=== PATIENT | male | born 1965 | race Two or more races ===

== ENCOUNTER → 2020-08-08 10:19 | Outpatient (BNVA) | payer OTHER, SELFPAY | PROVIDERS: PCP Nurse Practitioner Family; Visit Provider Hospitalist | DX: J44.1 Chronic obstructive pulmonary disease with (acute) exacerbation (principal); J45.901 Unspecified asthma with (acute) exacerbation; J96.11 Chronic respiratory failure with hypoxia; J96.12 Chronic respiratory failure with hypercapnia; G47.33 Obstructive sleep apnea (adult) (pediatric); E66.01 Morbid (severe) obesity due to excess calories; Z79.899 Other long term (current) drug therapy; Z99.81 Dependence on supplemental oxygen | CPT/HCPCS: 99212 ==

== ENCOUNTER → 2020-10-08 10:22 | Outpatient (BNVA) | payer OTHER, SELFPAY | PROVIDERS: PCP Nurse Practitioner Family; Visit Provider Hospitalist | DX: J96.10 Chronic respiratory failure, unspecified whether with hypoxia or hypercapnia (principal); J45.901 Unspecified asthma with (acute) exacerbation; J44.1 Chronic obstructive pulmonary disease with (acute) exacerbation; M79.89 Other specified soft tissue disorders; G47.33 Obstructive sleep apnea (adult) (pediatric) | CPT/HCPCS: 99212 ==

== ENCOUNTER → 2020-12-16 14:52 | Outpatient (BNVA) | payer OTHER, SELFPAY | PROVIDERS: PCP Nurse Practitioner Family; Visit Provider Hospitalist ==

== ENCOUNTER → 2021-05-23 10:18 | Outpatient (BNVA) | payer OTHER, SELFPAY | PROVIDERS: PCP Nurse Practitioner Family; Visit Provider Hospitalist | DX: J96.11 Chronic respiratory failure with hypoxia (principal); J96.12 Chronic respiratory failure with hypercapnia; G47.33 Obstructive sleep apnea (adult) (pediatric); U07.1 COVID-19; Z79.899 Other long term (current) drug therapy | CPT/HCPCS: 99212 ==

== ENCOUNTER → 2021-08-28 10:41 | Outpatient (BNVA) | payer OTHER, SELFPAY | PROVIDERS: PCP Nurse Practitioner Family; Visit Provider Hospitalist | DX: J96.11 Chronic respiratory failure with hypoxia (principal); J96.12 Chronic respiratory failure with hypercapnia; J44.9 Chronic obstructive pulmonary disease, unspecified; G47.33 Obstructive sleep apnea (adult) (pediatric) | CPT/HCPCS: 99212 ==

== ENCOUNTER → 2022-01-01 10:35 | Outpatient (BNVA) | payer OTHER, SELFPAY | PROVIDERS: PCP Nurse Practitioner Family; Visit Provider Hospitalist | DX: J44.9 Chronic obstructive pulmonary disease, unspecified (principal); J96.11 Chronic respiratory failure with hypoxia; J96.12 Chronic respiratory failure with hypercapnia; G47.33 Obstructive sleep apnea (adult) (pediatric) | CPT/HCPCS: 99212 ==

== ENCOUNTER → 2022-07-20 10:54 | Outpatient (BNVA) | payer OTHER, SELFPAY | PROVIDERS: PCP Nurse Practitioner Family; Visit Provider Hospitalist | DX: J44.9 Chronic obstructive pulmonary disease, unspecified (principal); J96.11 Chronic respiratory failure with hypoxia; J96.12 Chronic respiratory failure with hypercapnia; G47.33 Obstructive sleep apnea (adult) (pediatric); E66.01 Morbid (severe) obesity due to excess calories; Z68.43 Body mass index [BMI] 50.0-59.9, adult; Z99.89 Dependence on other enabling machines and devices | CPT/HCPCS: 94618; 99212 ==

== ENCOUNTER 2023-03-16 10:41 | Outpatient (REF) | payer OTHER, SELFPAY ==
[2023-03-16 11:46] LABS: MANUAL DIFF FLAG NO
[2023-03-16 11:58] LABS: Venous Blood Gas Refer to POC result
[2023-03-16 12:02] LABS: VBG Base Excess 9.5 mmol/L; VBG HCO3 35 mmol/L (22-26); VBG pCO2 50 mmHg; VBG pH 7.45 (7.32-7.43); VBG pO2 58 mmHg
[2023-03-16 12:54] LABS: Basophils Absolute Auto 0.1 X10*3/uL (0.0-0.2); Basophils Percent Auto 0.7 % (0-2); Eosinophils Absolute Auto 0.2 X10*3/uL (0.0-0.4); Eosinophils Percent Auto 1.3 % (0-4); Hematocrit 51.4 % (42.0-52.0); Hemoglobin 16.4 g/dl (14.0-18.0); Imm Gran Abs Auto 0.11 X10*3/uL (0.00-0.03); Imm Gran Pct Auto 0.8 % (0.0-0.4); Lymphocytes Absolute Auto 3.1 X10*3/uL (1.2-4.9); Mean Corpuscular HGB Conc 31.9 g/dl (31.0-36.0); Mean Corpuscular Hemoglobin 27.5 pg (27.0-33.0); Mean Corpuscular Volume 86.1 fL (80.0-98.0); Mean Platelet Volume 9.8 fL (9.4-12.4); Monocytes Absolute Auto 0.9 X10*3/uL (0.1-1.2); Monocytes Percent Auto 6.9 % (2-11); Neutrophils Absolute Auto 8.6 x10*3/uL (2.0-8.3); Neutrophils Percent Auto 66.3 % (45-73); Platelet Count 242 X10*3/uL (160-400); Red Blood Count 5.97 X10*6/uL (4.60-5.80); Red Cell Distribution Width 16.3 % (11.0-16.0)
[2023-03-16 13:48] LABS: Erythrocyte Sedimentation Rate 7 MM/HR (0-15)
[2023-03-19 05:58] LABS: Immunoglobulin E 116 kU/L (<OR=114)
[2023-03-22 15:13] LABS: IgA 427 mg/dL (47-310); IgG 893 mg/dL (600-1640); IgM 25 mg/dL (50-300)
== END 2023-03-16 10:42 | disposition home or self-care (01) ==
LOC: HO.LAB 10:41
PROVIDERS: PCP Nurse Practitioner Family; Visit Provider Hospitalist
DX: J44.9 Chronic obstructive pulmonary disease, unspecified (principal); J96.10 Chronic respiratory failure, unspecified whether with hypoxia or hypercapnia
CPT/HCPCS: 36415; 82784; 82785; 82803; 85025; 85652; 99212

== ENCOUNTER 2023-08-05 10:14 | Outpatient (AMB) | payer OTHER, SELFPAY ==
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
[2023-08-05 10:46] VITALS: PULSE 86; O2SAT 93; BMI 65.2
[2023-08-05 12:59] VITALS: PULSE 90; O2SAT 93
== END 2023-08-05 11:07 | disposition home or self-care (01) ==
PROVIDERS: PCP Nurse Practitioner Family; Visit Provider Hospitalist
DX: J96.11 Chronic respiratory failure with hypoxia (principal); J96.12 Chronic respiratory failure with hypercapnia; G47.33 Obstructive sleep apnea (adult) (pediatric); J44.9 Chronic obstructive pulmonary disease, unspecified
CPT/HCPCS: 94618; 99214

== ENCOUNTER → 2023-08-05 10:14 | Outpatient (BNVA) | payer OTHER, SELFPAY | PROVIDERS: PCP Nurse Practitioner Family; Visit Provider Hospitalist | DX: J96.11 Chronic respiratory failure with hypoxia (principal); J96.12 Chronic respiratory failure with hypercapnia; G47.33 Obstructive sleep apnea (adult) (pediatric); J44.9 Chronic obstructive pulmonary disease, unspecified | CPT/HCPCS: 94618; 99212 ==

== ENCOUNTER 2023-11-05 11:03 | Outpatient (AMB) | payer OTHER, SELFPAY ==
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
[2023-11-05 11:10] VITALS: PULSE 88; O2SAT 95; BMI 56.4
== END 2023-11-05 11:32 | disposition home or self-care (01) ==
PROVIDERS: PCP Nurse Practitioner Family; Visit Provider Hospitalist
DX: J96.11 Chronic respiratory failure with hypoxia (principal); J96.12 Chronic respiratory failure with hypercapnia; G47.33 Obstructive sleep apnea (adult) (pediatric); J44.9 Chronic obstructive pulmonary disease, unspecified; R10.10 Upper abdominal pain, unspecified; R63.4 Abnormal weight loss
CPT/HCPCS: 99214

== ENCOUNTER → 2023-11-05 11:03 | Outpatient (BNVA) | payer OTHER, SELFPAY | PROVIDERS: PCP Nurse Practitioner Family; Visit Provider Hospitalist | DX: G47.33 Obstructive sleep apnea (adult) (pediatric) (principal); J96.11 Chronic respiratory failure with hypoxia; J96.12 Chronic respiratory failure with hypercapnia; J44.9 Chronic obstructive pulmonary disease, unspecified; R10.10 Upper abdominal pain, unspecified; R63.4 Abnormal weight loss | CPT/HCPCS: 99212 ==

== ENCOUNTER 2023-12-02 12:15 | Outpatient (AMB) | payer OTHER, SELFPAY ==
--- NOTE | 2023-12-02 12:21 | A.OFFVIS_ITS ---
Intake Vital Signs 12/02/23 12:33 Height 6 ft 1 in Weight 424 lb 9.765 oz BMI 56.0 BP 134/79 Blood Pressure Location Lt brachial Position Sitting Pulse 104 H Pulse Source Pulse Oximeter Intake Visit Reasons: Abdominal pain Intake Note: Jhonny presents in office today as a new patient for abdominal pain. CC: Pt states he is having severe abdominal pain in his upper abdomen. Allergies codeine Allergy (Intermediate, Verified 12/02/23 13:05) rash HPI Abdominal pain HPI0 Details 58-year-old male here for initial evalua tion of abdominal pain. He is referred by Chacho Blakely of [facility] Medicine practice. PMX Morbid obesity ANIYA COPD with chronic respiratory failure and restrictive lung disease Cardiomyopathy with heart failure Hypertension High cholesterol Diabetes Umbilical hernia History of tubular adenoma Schizoaffective disorder/bipolar disorder/anxiety/depression Psoriasis Edema of lower extremities Chronic epigastric pain Constipation Chronic low back pain Carpal tunnel syndrome bilateral History of esophagitis * SURGICAL HISTORY Colonoscopy 02/2023 EGD 01/2017 Left knee surgery CTR bilateral * ALLERGIES Codeine * [employer] LABS: No applicable labs since 2019 TODAY'S VISIT [place]adian #Rosi Jacky Apparently the patient is here for a 2nd opinion, I do not know where he has had any prior workup or who the prior strategic client executive was but it would appear to be Dr. Cruz magallon [facility]. He says he can't sleep at night r/t the pain and he points to the high epigastric area under the ribs and the pain is worse when the food hits the mouth of my stomach. Apparently, he also has diarrhea and rectal bleeding. This started about 2 mos ago. It was of sudden onset. He has watery diarrhea 9 or more times a day. He keeps saying I told my primary doctor about this, and does not seem to understand that I do not have much information. He says his prior BM's were normal and formed. He is also having nausea but no vomiting, he may be having subjective fevers. He feels I can't burp. He feels like gas is trapped int he chest/esophageal area. He has been on several PPI medications w/o any good effect. He has tried Pepto Bismol but this gives him a burning pain in his throat and mouth. He has also been taking imodium 'liquid and pills but this has not helped. His elementary education teacher is Dr. Parada and he held his Daliresp w/o any effect on the diarrhea (this medicine is known to cause diarrhea as a s/e, but he has been on this since 2019 I doubt this is the cause). He had a recent colonoscopy in February that was normal except for some polyps. He also had a negative HP breath test. A CT from 2020 showed no GB problems at that time. He has lost weight with all of this, about 55 lbs over wanda past couple of months. He is on Trulicity but has been on this fora few years. I will get stool studies, IBD studies and RAST/TTGA testing. Given his respiratory status I am reluctant to do an EGD right away, but this may need to be considered. ROV 2 weeks. FOR[facility]LY [facility], [facility] Medical History Carpal tunnel syndrome on both sides Abdominal pain Asthma-COPD overlap syndrome COVID-19 Limb swelling ANIYA treated with BiPAP Chronic respiratory failure Surgical History H/O esophagogastroduodenoscopy H/O colonoscopy Social History Patient Tobacco Use Status: Never used Tobacco Review of Systems Const Denies fatigue, Reports fever(s), Denies night sweats, Reports poor appetite and Reports weight loss ENT Reports Normal hearing present, Denies dental pain, Denies dysphagia, Denies hearing loss, Denies mouth pain, Reports neck pain, Denies odynophagia, Denies throat swelling, Denies tongue swelling and Reports other (Dentition adequate) Card Reports no additional complaints and Reports dyspnea on exertion Resp Reports dyspnea on exertion GI Details: Reports abdominal pain, Denies melena, Denies bloating, Denies hematochezia, Denies constipation, Denies GI cramping, Denies dysphagia, Denies excessive flatus, Denies early satiety, Reports heartburn, Reports diarrhea, Reports nausea, Denies odynophagia, Denies vomiting and Denies hematemesis Musc Reports back pain and Reports neck pain Skin/Breast Denies pruritus, Denies lesions, Denies rash and Denies jaundice Neuro Reports Normal hearing present and Denies Abnormal speech present Endo Denies fatigue Aller/Immun Denies throat swelling and Denies tongue swelling Physical Exam Vital Signs: Last Vital Signs Pulse 104 H 12/02/23 12:33 BP 134/79 12/02/23 12:33 BMI result Body Mass Index 56.0 Const General: cooperative, no acute distress, well developed and well groomed Nutritional Appearance: well nourished and obese morbidly obese Orientation/consciousness: oriented to person, oriented to place and oriented to time Limitations: language barrier and ambulation with walker HEENT Head: Yes normocephalic and Yes atraumatic Eyes General: appearance normal, both eyes and all related structures Pupils: Equal, round and reactive pupils present Neck Neck: Yes normal visual inspection and Yes no lymphadenopathy Thyroid: Thyroid normal Chest Other: Tenderness over the sternum and xiphoid areas Resp Other: Increase anterior to posterior chest dimension Effort & Inspection: normal respiratory effort and able to speak in complete sentences Auscultation: diminished lung sounds Cardio Rate: regular rate Rhythm: regular rhythm Heart sounds: Normal, physiologic split S2 sound present Peripheral pulses: radial pulses present and posterior tibial pulses present GI Inspection: No distended, Yes Abdominal panniculus present and Yes obesity Palpation (GI): Soft to palpation, Tenderness to palpation present (GI) in the epigastrum and periumbilically, no guarding, not rigid and No hepatosplenomegaly present Percussion: Yes normal to percussion Auscultation: normal bowel sounds Rectal Exam - Male: Yes deferred Skin Other: Areas of vitiligo scattered on the stomach General skin exam: no rashes or lesions noted, turgor normal, skin not dry, no jaundice, No spider nevi and no striae Rashes: no rashes Nails: normal Neuro General: oriented to person, oriented to place and oriented to time Cranial nerves: Yes Equal, round and reactive pupils present and Yes Normal hearing present Speech: No Abnormal speech present Extrem General: Yes normal to inspection, Yes calf tenderness, No clubbing, No cyanosis, Yes edema and Yes venous stasis dermatitis Psych Appearance: grossly normal and well kempt Mental Status: mental status grossly normal Speech and movement: Normal speech and movement present Affect: normal affect Attitude: cooperative Thought process: Normal thought process present and not confabulating Thought content: Normal thought content present Insight: Limited insight present (Psych) Judgement: Limited judgement present (Psych) Assessment & Plan Assessment & Plan (1) Chronic epigastric pain: Code(s): R10.13 - Epigastric pain; G89.29 - Other chronic pain (2) Chronic low back pain: Code(s): M54.50 - Low back pain, unspecified; G89.29 - Other chronic pain (3) GERD with esophagitis: Code(s): K21.00 - Gastro-esophageal reflux disease with esophagitis, without bleeding (4) Generalized abdominal pain: Code(s): R10.84 - Generalized abdominal pain (5) Diarrhea: Code(s): R19.7 - Diarrhea, unspecified Plan Chadian #Rosi Live Apparently the patient is here for a 2nd opinion, I do not know where he has had any prior workup or who the prior strategic client executive was but it would appear to be Dr. Arroyo a [facility]. He says he can't sleep at night r/t the pain and he points to the high epigastric area under the ribs and the pain is worse when the food hits the mouth of my stomach. Apparently, he also has diarrhea and rectal bleeding. This started about 2 mos ago. It was of sudden onset. He has watery diarrhea 9 or more times a day. He keeps saying I told my primary doctor about this, and does not seem to understand that I do not have much information. He says his prior BM's were normal and formed. He is also having nausea but no vomiting, he may be having subjective fevers. He feels I can't burp. He feels like gas is trapped int he chest/esophageal area. He has been on several PPI medications w/o any good effect. He has tried Pepto Bismol but this gives him a burning pain in his throat and mouth. He has also been taking imodium 'liquid and pills but this has not helped. His elementary education teacher is Dr. Parada and he held his Daliresp w/o any effect on the diarrhea (this medicine is known to cause diarrhea as a s/e, but he has been on this since 2019 I doubt this is the cause). He had a recent colonoscopy in February that was normal except for some polyps. He also had a negative HP breath test. A CT from 2020 showed no GB problems at that time. He has lost weight with all of this, about 55 lbs over the past couple of months. He is on Trulicity but has been on this fora few years. I will get stool studies, IBD studies and RAST/TTGA testing. Given his respiratory status I am reluctant to do an EGD right away, but this may need to be considered. ROV 2 weeks. Orders: Orders Calprotectin, Fecal Today R10.84 - Generalized abdominal pain, R19.7 - Diarrhea, unspecified Transglutaminase Ab IgG Today R10.84 - Generalized abdominal pain, R19.7 - Diarrhea, unspecified GI Panel Today R10.84 - Generalized abdominal pain, R19.7 - Diarrhea, unspecified C Reactive Protein Today R10.84 - Generalized abdominal pain, R19.7 - Diarrhea, unspecified CDiff Gene PCR Today R10.84 - Generalized abdominal pain, R19.7 - Diarrhea, unspecified Rast Allergen Today R10.84 - Generalized abdominal pain, R19.7 - Diarrhea, unspecified Transglutaminase IgA Today R10.84 - Generalized abdominal pain, R19.7 - Diarrhea, unspecified TSH reflex Free T4 Today R10.84 - Generalized abdominal pain, R19.7 - Diarrhea, unspecified Comprehensive Met. Panel Today R10.84 - Generalized abdominal pain, R19.7 - Diarrhea, unspecified CT abdomen pelvis w IV con Today R10.84 - Generalized abdominal pain, R19.7 - Diarrhea, unspecified Coding Level of Care Code New Pt Level 3 (45544) Diagnoses Chronic epigastric pain R10.13; G89.29 Chronic low back pain M54.50; G89.29 GERD with esophagitis K21.00 Generalized abdominal pain R10.84 Diarrhea R19.7
[2023-12-02 12:33] VITALS: BP 134/79; PULSE 104; BMI 56.0
== END 2023-12-02 14:07 | disposition home or self-care (01) ==
PROVIDERS: PCP Nurse Practitioner Family; Visit Provider Nurse Practitioner
DX: R10.13 Epigastric pain (principal); G89.29 Other chronic pain; M54.50 Low back pain, unspecified; K21.00 Gastro-esophageal reflux disease with esophagitis, without bleeding; R10.84 Generalized abdominal pain; R19.7 Diarrhea, unspecified
CPT/HCPCS: 99203

== ENCOUNTER 2023-12-02 12:15 | Outpatient (REF) | payer OTHER, SELFPAY ==
[2023-12-02 15:37] LABS: Alanine Aminotransferase 33 U/L (0-40); Albumin Level 4.4 g/dL (3.5-5.0); Alkaline Phosphatase 67 U/L (39-117); Anion Gap 13 (12-20); Aspartate Amino Transferase 24 U/L (5-37); Bilirubin Total 0.5 mg/dL (0.0-1.0); Blood Urea Nitrogen 21 mg/dL (9-16); C Reactive Protein 1.19 mg/dL (< or = 0.50); Calcium 9.7 mg/dL (8.4-10.2); Carbon Dioxide 31 mmol/L (22-29); Chloride 97 mmol/L (96-108); Estimated Glomerular Filt Rate > 60; Glucose Random 165 mg/dL (60-115); Potassium 4.2 mmol/L (3.3-5.1); Sodium 137 mmol/L (135-145); Total Protein 7.8 g/dL (6.5-8.0)
[2023-12-02 15:53] LABS: TSH reflex Free T4 1.08 uIU/mL (0.32-4.0)
[2023-12-06 20:44] LABS: Transglutaminase Ab IgG <1.0 U/mL; Transglutaminase IgA <1.0 U/mL
== END 2023-12-02 12:16 | disposition home or self-care (01) ==
LOC: HO.LAB 12:15
PROVIDERS: PCP Nurse Practitioner Family; Visit Provider Nurse Practitioner
DX: R10.84 Generalized abdominal pain (principal); R10.13 Epigastric pain; R19.7 Diarrhea, unspecified; M54.50 Low back pain, unspecified; G89.29 Other chronic pain; K21.00 Gastro-esophageal reflux disease with esophagitis, without bleeding
CPT/HCPCS: 36415; 80053; 84443; 86140; 86364; 99202

== ENCOUNTER 2023-12-15 12:28 | Outpatient (REF) | payer OTHER, SELFPAY ==
[2023-12-15 14:40] LABS: CDiff Gene PCR NEGATIVE (Negative)
[2023-12-15 16:13] LABS: Adenovirus F 40/41 Not Detected (Not Detect.); Astrovirus Not Detected (Not Detect.); Campylobacter Not Detected (Not Detect.); Cryptosporidium Not Detected (Not Detect.); Cyclospora cayetanensis Not Detected (Not Detect.); E. coli EAEC Not Detected (Not Detect.); E. coli EPEC Not Detected (Not Detect.); E. coli ETEC Not Detected (Not Detect.); E. coli STEC Not Detected (Not Detect.); Entamoeba histolytica Not Detected (Not Detect.); Giardia lamblia Not Detected (Not Detect.); Norovirus GI/GII Not Detected (Not Detect.); Plesiomonas shigelloides Not Detected (Not Detect.); Rotavirus A Not Detected (Not Detect.); Salmonella Not Detected (Not Detect.); Sapovirus Not Detected (Not Detect.); Shigella sp./EIEC Not Detected (Not Detect.); Vibrio Not Detected (Not Detect.); Vibrio Cholerae Not Detected (Not Detect.); Yersinia enterocolitica Not Detected (Not Detect.)
[2023-12-26 00:44] LABS: Calprotectin, Fecal 141 mcg/g
== END 2023-12-15 12:29 | disposition home or self-care (01) ==
LOC: HO.LNP 12:28
PROVIDERS: Visit Provider Nurse Practitioner
DX: R10.84 Generalized abdominal pain (principal); R19.7 Diarrhea, unspecified
CPT/HCPCS: 83993; 87493; 87507

== ENCOUNTER 2023-12-23 10:17 | Outpatient (AMB) | payer OTHER, SELFPAY ==
[2023-12-23 10:19] VITALS: BP 117/58; PULSE 80; BMI 56.2
--- NOTE | 2023-12-23 10:19 | MHC.OFFVIS ---
Intake Vital Signs 12/23/23 10:19 Height 6 ft 1 in Weight 425 lb 14.929 oz BMI 56.2 BP 117/58 L Blood Pressure Location Lt brachial Position Sitting Pulse 80 Intake Visit Reasons: 3 week follow up Intake Note: Jhonny presents in office today as in 3 weeks follow up labs. CC: Patient with c/o severe upper abdominal pain, with diarrhea, and acid reflux sometimes. He reports seeing blood when wiping after BM in the past. CT of the abdomen scheduled for 01/26/24. Hr Coordinator Required: No Accompanied by: Self / Same As Patient Allergies codeine Allergy (Intermediate, Verified 12/23/23 10:33) rash HPI 3 week follow up HPI Details Assessment & Plan (1) Chronic epigastric pain: Code(s): R10.13 - Epigastric pain; G89.29 - Other chronic pain (2) Chronic low back pain: Code(s): M54.50 - Low back pain, unspecified; G89.29 - Other chronic pain (3) GERD with esophagitis: Code(s): K21.00 - Gastro-esophageal reflux disease with esophagitis, without bleeding (4) Generalized abdominal pain: Code(s): R10.84 - Generalized abdominal pain (5) Diarrhea: Code(s): R19.7 - Diarrhea, unspecified Plan Iranian #Rosi Live Apparently the patient is here for a 2nd opinion, I do not know where he has had any prior workup or who the prior aviation safety equipment technician was but it would appear to be Dr. Cruz magallon [facility]. He says he can't sleep at night r/t the pain and he points to the high epigastric area under the ribs and the pain is worse when the food hits the mouth of my stomach. Apparently, he also has diarrhea and rectal bleeding. This started about 2 mos ago. It was of sudden onset. He has watery diarrhea 9 or more times a day. He keeps saying I told my primary doctor about this, and does not seem to understand that I do not have much information. He says his prior BM's were normal and formed. He is also having nausea but no vomiting, he may be having subjective fevers. He feels I can't burp. He feels like gas is trapped int he chest/esophageal area. He has been on several PPI medications w/o any good effect. He has tried Pepto Bismol but this gives him a burning pain in his throat and mouth. He has also been taking imodium 'liquid and pills but this has not helped. His predictive maintenance specialist is Dr. Parada and he held his Daliresp w/o any effect on the diarrhea (this medicine is known to cause diarrhea as a s/e, but he has been on this since 2019 I doubt this is the cause). He had a recent colonoscopy in February that was normal except for some polyps. He also had a negative HP breath test. A CT from 2020 showed no GB problems at that time. He has lost weight with all of this, about 55 lbs over the past couple of months. He is on Trulicity but has been on this fora few years. I will get stool studies, IBD studies and RAST/TTGA testing. Given his respiratory status I am reluctant to do an EGD right away, but this may need to be considered. ROV 2 weeks. Orders: Orders Calprotectin, Feca l Today R10.84 - Generaliz ed abdominal pain, R19.7 - Diarrhea, unspecified Transglutaminase A b IgG Today R10.84 - Generaliz ed abdominal pain, R19.7 - Diarrhea, unspecified GI Panel Today R10.84 - Generaliz ed abdominal pain, R19.7 - Diarrhea, unspecified C Reactive Protein Today R10.84 - Generaliz ed abdominal pain, R19.7 - Diarrhea, unspecified CDiff Gene PCR Today R10.84 - Generaliz ed abdominal pain, R19.7 - Diarrhea, unspecified Rast Allergen Today R10.84 - Generaliz ed abdominal pain, R19.7 - Diarrhea, unspecified Transglutaminase I gA Today R10.84 - Generaliz ed abdominal pain, R19.7 - Diarrhea, unspecified TSH reflex Free T4 Today R10.84 - Generaliz ed abdominal pain, R19.7 - Diarrhea, unspecified Comprehensive Met. Panel Today R10.84 - Generaliz ed abdominal pain, R19.7 - Diarrhea, unspecified CT abdomen pelvis w IV con Today R10.84 - Generaliz ed abdominal pain, R19.7 - Diarrhea, unspecified LABS: Laboratory Tests 12/02/23 12/02/23 12/02/23 14:28 14:28 14:28 Estimated GFR > 60 Total Bilirubin 0.5 AST 24 ALT 33 Alkaline Phosphata se 67 C-Reactive Protein 1.19 H TSH 1.08 Stool Calprotectin Tiss Transglutamin IgG <1.0 Tiss Transglutamin IgA <1.0 C. difficile Tox B Gene 12/15/23 12/15/23 09:15 09:15 Estimated GFR Total Bilirubin AST ALT Alkaline Phosphata se C-Reactive Protein TSH Stool Calprotectin Pending Tiss Transglutamin IgG Tiss Transglutamin IgA C. difficile Tox B Gene NEGATIVE 12/15/23-[address]: ORDERED: GI Panel Test Result Flag Refere nce Campylobacter No t Detected Not Det ect. P. shigell oides Not Detected No t Detect. Salmo zaira Not Detect ed Not Detect. Vibrio Not D etected Not Detect . Vibrio Choler ae Not Detected Not D etect. Y. enter ocolit. Not Detected Not Detect. E. coli EAEC Not Dete cted Not Detect. E. coli EPEC Not Detected Not Dete ct. E. coli ETE C Not Detected Not Detect. E. col i STEC Not Detecte d Not Detect. E . coli O157 Not vadim licable Not Detect. E. coli c ontaining the O157 antigen are a sub set of Shig a-like toxin-produ cing E. coli (STEC ). Shigella/EIEC Not Detected Not D etect. Cryptosp oridium Not Detected Not Detect. Cyc lospora Not Dete cted Not Detect. E. histolytica Not Detected Not Dete ct. Giardia auguste blia Not Detected Not Detect. Adenov irus Not Detecte d Not Detect. A strovirus Not De tected Not Detect. Norovirus N ot Detected Not De tect. Rotavirus A Not Detected N ot Detect. Nicanor virus Not Detec tamera Not Detect. ? RAST ALLERGEN PANEL CT OF THE ABDOMEN AND PELVIS Scheduled for January 25 TODAY'S VISIT Iranian #Stephenie Rico (Apparently the patient is here for a 2nd opinion, I do not know where he has had any prior workup or who the prior aviation safety equipment technician was but it would appear to be Dr. Cruz magallon [facility].) We review what we have, and he does have an elevated CRP but the fecal calprotectin is not yet back. Also, he was not given the RAST sheet so this testing was not performed. Still considering EGD. Again, his multiple health problems and respiratory status make me concerned about ordering this before we have exhausted other options. Will start him on carafate 2 tabs q noon for relief until more testing is in. He at times has solid stools but he will have epigastric galindo and borborygmus and then he will have diarrhea and more general abd pain. ROV 3 weeks. FORMERLY [facility] Medical History (Updated 12/23/23 @ 10:36 by KATHI Webb) Abdominal pain Asthma-COPD overlap syndrome COVID-19 Limb swelling Carpal tunnel syndrome on both sides ANIYA treated with BiPAP Chronic respiratory failure Surgical History H/O esophagogastroduodenoscopy H/O colonoscopy Social History Patient Tobacco Use Status: Never used Tobacco Review of Systems Const Denies fatigue, Denies fever(s), Denies night sweats, Denies poor appetite and Reports weight loss ENT Reports Normal hearing present, Denies dental pain, Denies dysphagia, Denies hearing loss, Denies mouth pain, Denies odynophagia, Denies throat swelling, Denies tongue swelling and Reports other (Dentition adequate) Card Reports no additional complaints and Reports dyspnea on exertion Resp Reports dyspnea on exertion GI Details: Reports abdominal pain, Denies melena, Denies bloating, Denies hematochezia, Denies constipation, Reports GI cramping, Denies dysphagia, Denies excessive flatus, Denies early satiety, Denies heartburn, Reports diarrhea, Denies nausea, Denies odynophagia, Denies vomiting and Denies hematemesis Skin/Breast Denies pruritus, Denies lesions, Denies rash and Denies jaundice Neuro Reports Normal hearing present and Denies Abnormal speech present Endo Denies fatigue Aller/Immun Denies throat swelling and Denies tongue swelling Physical Exam Vital Signs: Last Vital Signs Pulse 80 12/23/23 10:19 BP 117/58 L 12/23/23 10:19 BMI result Body Mass Index 56.2 Const General: cooperative, no acute distress, well developed and well groomed Nutritional Appearance: well nourished and obese morbidly obese Orientation/consciousness: oriented to person, oriented to place and oriented to time Limitations: language barrier and ambulation with walker HEENT Head: Yes normocephalic and Yes atraumatic Eyes General: appearance normal, both eyes and all related structures Pupils: Equal, round and reactive pupils present Neck Neck: Yes normal visual inspection and Yes no lymphadenopathy Thyroid: Thyroid normal Resp Effort & Inspection: normal respiratory effort and able to speak in complete sentences Auscultation: clear to auscultation bilaterally Cardio Rate: regular rate Rhythm: regular rhythm Heart sounds: Normal, physiologic split S2 sound present Peripheral pulses: radial pulses present and posterior tibial pulses present GI Inspection: No distended, Yes Abdominal panniculus present and Yes obesity Palpation (GI): Soft to palpation, nontender, no guarding, not rigid and No hepatosplenomegaly present Percussion: Yes normal to percussion Auscultation: normal bowel sounds Rectal Exam - Male: Yes deferred Skin General skin exam: no rashes or lesions noted, turgor normal, skin not dry, no jaundice, No spider nevi and no striae Rashes: no rashes Nails: normal Neuro General: oriented to person, oriented to place and oriented to time Cranial nerves: Yes Equal, round and reactive pupils present and Yes Normal hearing present Speech: No Abnormal speech present Extrem General: Yes normal to inspection, No clubbing, No cyanosis and No edema Psych Appearance: grossly normal and well kempt Mental Status: mental status grossly normal Speech and movement: Normal speech and movement present Affect: normal affect Attitude: cooperative Thought process: Normal thought process present and not confabulating Thought content: Normal thought content present Insight: Limited insight present (Psych) Judgement: Limited judgement present (Psych) Results Reviewed Results Reviewed: Laboratory Tests 12/02/23 12/02/23 12/02/23 14:28 14:28 14:28 Estimated GFR > 60 Total Bilirubin 0.5 AST 24 ALT 33 Alkaline Phosphatase 67 C-Reactive Protein 1.19 H TSH 1.08 Stool Calprotectin Tiss Transglutamin IgG <1.0 Tiss Transglutamin IgA <1.0 C. difficile Tox B Gene 12/15/23 12/15/23 09:15 09:15 Estimated GFR Total Bilirubin AST ALT Alkaline Phosphatase C-Reactive Protein TSH Stool Calprotectin Pending Tiss Transglutamin IgG Tiss Transglutamin IgA C. difficile Tox B Gene NEGATIVE 12/15/23-[address]: ORDERED: GI Panel Test Result Flag Reference Campylobacter Not Detected Not Detect. P. shigelloides Not Detected Not Detect. Salmonella Not Detected Not Detect. Vibrio Not Detected Not Detect. Vibrio Cholerae Not Detected Not Detect. Y. enterocolit. Not Detected Not Detect. E. coli EAEC Not Detected Not Detect. E. coli EPEC Not Detected Not Detect. E. coli ETEC Not Detected Not Detect. E. coli STEC Not Detected Not Detect. E. coli O157 Not applicable Not Detect. E. coli containing the O157 antigen are a subset of Shiga-like toxin-producing E. coli (STEC). Shigella/EIEC Not Detected Not Detect. Cryptosporidium Not Detected Not Detect. Cyclospora Not Detected Not Detect. E. histolytica Not Detected Not Detect. Giardia lamblia Not Detected Not Detect. Adenovirus Not Detected Not Detect. Astrovirus Not Detected Not Detect. Norovirus Not Detected Not Detect. Rotavirus A Not Detected Not Detect. Sapovirus Not Detected Not Detect. ? RAST ALLERGEN PANEL Assessment & Plan Assessment & Plan (1) Generalized abdominal pain: Code(s): R10.84 - Generalized abdominal pain (2) GERD with esophagitis: Code(s): K21.00 - Gastro-esophageal reflux disease with esophagitis, without bleeding (3) Diarrhea: Code(s): R19.7 - Diarrhea, unspecified (4) Chronic epigastric pain: Code(s): R10.13 - Epigastric pain; G89.29 - Other chronic pain (5) Unintentional weight loss: Comment: >50 lbs in less then 3 months Code(s): R63.4 - Abnormal weight loss Plan Iranian #Stephenie Jacky (Apparently the patient is here for a 2nd opinion, I do not know where he has had any prior workup or who the prior aviation safety equipment technician was but it would appear to be Dr. Arroyo a [facility].) We review what we have, and he does have an elevated CRP but the fecal calprotectin is not yet back. Also, he was not given the RAST sheet so this testing was not performed. Still considering EGD. Again, his multiple health problems and respiratory status make me concerned about ordering this before we have exhausted other options. Will start him on carafate 2 tabs q noon for relief until more testing is in. He at times has solid stools but he will have epigastric galindo and borborygmus and then he will have diarrhea and more general abd pain. ROV 3 weeks. STILL WAITING FOR STOOL CALPROTECTIN AND RAST PANEL. LABS: CT OF THE ABDOMEN AND PELVIS Scheduled for January 25 Medications: New hydrocortisone 2.5% (Proctosol HC) BE SURE TO INCLUDE RECTAL APPICATOR!! 1 appl UT BID 30 grams 6RF hemorrhoids K64.9 - Unspecified hemorrhoids sucralfate (Carafate) 2 grams (2 x 1 gram) PO QNOON 60 tabs 0RF R19.7 - Diarrhea, unspecified Coding Level of Care Code Est Pt Level 3 (42217) Diagnoses Generalized abdominal pain R10.84 GERD with esophagitis K21.00 Diarrhea R19.7 Chronic epigastric pain R10.13; G89.29 Unintentional weight loss R63.4
== END 2023-12-23 11:12 | disposition home or self-care (01) ==
PROVIDERS: PCP Nurse Practitioner Family; Visit Provider Nurse Practitioner
DX: R10.84 Generalized abdominal pain (principal); K21.00 Gastro-esophageal reflux disease with esophagitis, without bleeding; R19.7 Diarrhea, unspecified; R10.13 Epigastric pain; G89.29 Other chronic pain; R63.4 Abnormal weight loss
CPT/HCPCS: 99213

== ENCOUNTER → 2023-12-23 10:17 | Outpatient (BNVA) | payer OTHER, SELFPAY | PROVIDERS: PCP Nurse Practitioner Family; Visit Provider Nurse Practitioner | DX: R10.84 Generalized abdominal pain (principal); R19.7 Diarrhea, unspecified; R10.13 Epigastric pain; R63.4 Abnormal weight loss; K21.00 Gastro-esophageal reflux disease with esophagitis, without bleeding; G89.29 Other chronic pain | CPT/HCPCS: 99212 ==

== ENCOUNTER 2023-12-31 10:19 | Outpatient (REF) | payer OTHER, SELFPAY | END 2023-12-31 10:20 | disposition home or self-care (01) | LOC: HO.LAB 10:19 | PROVIDERS: Visit Provider Nurse Practitioner | DX: R10.84 Generalized abdominal pain (principal); R19.7 Diarrhea, unspecified | CPT/HCPCS: 36415; 86003 ==

== ENCOUNTER 2024-01-26 09:08 | Outpatient (REF) | payer OTHER, SELFPAY ==
--- NOTE | ~2024-01-26 | CT_ITS ---
EXAMINATION: CT ABDOMEN AND PELVIS WITH CONTRAST CLINICAL INFORMATION: Generalized abdominal pain COMPARISON: None available. TECHNIQUE: Multidetector volumetric images were obtained from the superior aspect of the liver through the pubic symphysis following administration 85 mL of Omnipaque 350 intravenous contrast. Sagittal and coronal reformatted images were obtained on the technologist's workstation. Oral contrast: Yes This CT examination was performed using dose optimization techniques as appropriate, variously including the following: *Automated exposure control *Adjustment of mA and/or kV according to patient size (this includes techniques or standardized protocols for targeted exams where dose is matched to indication/reason for exam; i.e. extremities or head) *Use of iterative reconstruction technique DLP: 1336 mGy-cm FINDINGS: LUNG BASES: The visualized lung bases are unremarkable. LIVER, GALLBLADDER, AND BILIARY TREE: The liver is normal in size, shape, and attenuation. No focal hepatic lesion or biliary ductal dilatation is present. The gallbladder is unremarkable with no evidence of radiopaque gallstones, gallbladder wall thickening, or obvious pericholecystic inflammatory changes. PANCREAS: Unremarkable. SPLEEN: Unremarkable. ADRENAL GLANDS: Unremarkable. KIDNEYS AND URETERS: The kidneys are normal in size, shape, and attenuation. No hydronephrosis, hydroureter, or calculi seen. No perinephric stranding. BLADDER: Unremarkable. GASTROINTESTINAL TRACT: Mild diverticulosis of the colon. The small and large bowel are otherwise unremarkable. The appendix is unremarkable. ABDOMINAL WALL: Small umbilical hernia containing fat. LYMPH NODES: Normal. VASCULAR: Unremarkable. PELVIC VISCERA: Unremarkable. OSSEOUS STRUCTURES: Degenerative changes of the spine CT/CT abdomen pelvis w IV con IMPRESSION: No acute findings. Diverticulosis. Small umbilical hernia containing fat. Fleischner guidelines were followed.
[2024-01-27 09:10] LABS: Creatinine POC 0.9 mg/dL (0.5-1.4); GFR POC > 60
== END 2024-01-26 09:09 | disposition home or self-care (01) ==
LOC: HO.CT 09:08
PROVIDERS: PCP Nurse Practitioner Family; Visit Provider Nurse Practitioner
DX: R10.84 Generalized abdominal pain (principal); R19.7 Diarrhea, unspecified
CPT/HCPCS: 74177; 82565; Q9967

== ENCOUNTER 2024-02-01 10:59 | Outpatient (AMB) | payer OTHER, SELFPAY ==
[2024-02-01 11:01] VITALS: BP 124/67; PULSE 87; BMI 56.1
--- NOTE | 2024-02-01 11:01 | A.OFFVIS_ITS ---
Vital Signs 02/01/24 11:01 Height 6 ft 1 in Weight 425 lb 7.874 oz BMI 56.1 BP 124/67 Blood Pressure Location Rt brachial Position Sitting Pulse 87 Intake Visit Reasons: 3 Month Follow Up Intake Note: Jhonny presents in office today in follow up of abdominal pain. CC: Patient states that he is trying to watch what he eats to avoid epigastric pain. Per patient about 5 days ago he had a BM arben looked like black . 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 Bench Assembler Battery Name: Lamine [id number] Accompanied by: Self / Same As Patient Allergies codeine Allergy (Intermediate, Verified 02/01/24 11:05) rash HPI HPI 3 Month Follow Up: Details: Assessment & Plan (1) Generalized abdominal pain: Code(s): R10.84 - Generalized abdominal pain (2) GERD with esophagitis: Code(s): K21.00 - Gastro-esophageal reflux disease with esophagitis, without bleeding (3) Diarrhea: Code(s): R19.7 - Diarrhea, unspecified (4) Chronic epigastric pain: Code(s): R10.13 - Epigastric pain; G89.29 - Other chronic pain (5) Unintentional weight loss: Comment: >50 lbs in less then 3 months Code(s): R63.4 - Abnormal weight loss Plan Austrian #Stephenie Rico (Apparently the patient is here for a 2nd opinion, I do not know where he has had any prior workup or who the prior clinical documentation nurse was but it would appear to be Dr. Cruz magallon [facility].) We review what we have, and he does have an elevated CRP but the fecal calprotectin is not yet back. Also, he was not given the RAST sheet so this testing was not performed. Still considering EGD. Again, his multiple health problems and respiratory status make me concerned about ordering this before we have exhausted other options. Will start him on carafate 2 tabs q noon for relief until more testing is in. He at times has solid stools but he will have epigastric galindo and borborygmus and then he will have diarrhea and more general abd pain. ROV 3 weeks. STILL WAITING FOR STOOL CALPROTECTIN AND RAST PANEL. Medications: New hydrocortisone 2.5% (Proctosol HC) BE SURE TO INCLUDE RECTAL APPICATOR!! 1 appl ME BID 30 grams 6RF hemorrhoids K64.9 - Unspecified hemorrhoids sucralfate (Carafate) 2 grams (2 x 1 gram) PO QNOON 60 tabs 0RF R19.7 - Diarrhea, unspecified LABS: Laboratory Tests 12/15/23 09:15 Stool Calprotectin 141 H RAST DOES NOT SHOW ANY SIGNIFICANT ALLERGIES ^^ CT OF THE ABDOMEN AND PELVIS 01/26/24 FINDINGS: LUNG BASES: The visualized lung bases are unremarkable. LIVER, GALLBLADDER, AND BILIARY TREE: The liver is normal in size, shape, and attenuation. No focal hepatic lesion or biliary ductal dilatation is present. The gallbladder is unremarkable with no evidence of radiopaque gallstones, gallbladder wall thickening, or obvious pericholecystic inflammatory changes. PANCREAS: Unremarkable. SPLEEN: Unremarkable. ADRENAL GLANDS: Unremarkable. KIDNEYS AND URETERS: The kidneys are normal in size, shape, and attenuation. No hydronephrosis, hydroureter, or calculi seen. No perinephric stranding. BLADDER: Unremarkable. GASTROINTESTINAL TRACT: Mild diverticulosis of the colon. The small and large bowel are otherwise unremarkable. The appendix is unremarkable. ABDOMINAL WALL: Small umbilical hernia containing fat. LYMPH NODES: Normal. VASCULAR: Unremarkable. PELVIC VISCERA: Unremarkable. OSSEOUS STRUCTURES: Degenerative changes of the spine CT/CT abdomen pelvis w IV con IMPRESSION: No acute findings. Diverticulosis. Small umbilical hernia containing fat. TODAY'S VISIT Austrian #[id number] Apparently the patient is here for a 2nd opinion, I do not know where he has had any prior workup or who the prior clinical documentation nurse was but it would appear to be Dr. Cruz magallon [facility]. He found the carafate helpful with his diarrhea. But a week ago it was more liquid and black and now it is more pasty. Given the findings of an elevated CRP and a markedly elevated fecal calprotectin in the absence of an infection or allergy I think we should try treating him for inflammatory bowel disease. Because he is morbidly obese, a diabetic, and has some cardiac problems I want to put him on budesonide to try to spare him the more systemic affects of prednisone. Will also start him on mesalamine. Hopefully if this is successful we can even stop the Carafate. I explained to him that inflammatory bowel disease diff can be difficult to diagnose initially because of the exacerbating remitting nature of the disease. Return office visit in 4 weeks [facility] Medical History (Updated 02/01/24 @ 11:32 by KATHI Webb) Crohn's colitis Abdominal pain Asthma-COPD overlap syndrome COVID-19 Limb swelling Carpal tunnel syndrome on both sides ANIYA treated with BiPAP Chronic respiratory failure Surgical History H/O esophagogastroduodenoscopy H/O colonoscopy Social History Patient Tobacco Use Status: Never used Tobacco Review of Systems Const Denies fatigue, Denies fever(s), Denies night sweats, Denies poor appetite and Denies weight loss ENT Reports Normal hearing present, Denies dental pain, Denies dysphagia, Denies hearing loss, Denies mouth pain, Denies odynophagia, Denies throat swelling, Denies tongue swelling and Reports other (Dentition adequate) Card Reports no additional complaints Resp Reports no additional complaints GI Details: Denies abdominal pain, Denies melena, Denies bloating, Reports hematochezia (Rectal irritation), Denies constipation, Denies GI cramping, Denies dysphagia, Denies excessive flatus, Denies early satiety, Reports heartburn, Reports diarrhea, Denies nausea, Denies odynophagia, Denies vomiting and Denies hematemesis Musc Reports abnormal gait, Reports back pain and Reports arthralgias Skin/Breast Denies pruritus, Denies lesions, Denies rash and Denies jaundice Neuro Reports Normal hearing present, Denies Abnormal speech present and Reports abnormal gait Endo Denies fatigue Aller/Immun Denies throat swelling and Denies tongue swelling Physical Exam Vital Signs: Last Vital Signs Pulse 87 02/01/24 11:01 BP 124/67 02/01/24 11:01 BMI result Body Mass Index 56.1 Const General: cooperative, no acute distress, well developed and well groomed Nutritional Appearance: well nourished and obese Orientation/consciousness: oriented to person, oriented to place and oriented to time Limitations: language barrier, ambulation with walker and other limitations HEENT Head: Yes normocephalic and Yes atraumatic Eyes General: appearance normal, both eyes and all related structures Pupils: Equal, round and reactive pupils present Neck Neck: Yes normal visual inspection and Yes no lymphadenopathy Thyroid: Thyroid normal Resp Effort & Inspection: normal respiratory effort and able to speak in complete sentences Auscultation: clear to auscultation bilaterally Cardio Rate: regular rate Rhythm: regular rhythm Heart sounds: Normal, physiologic split S2 sound present Peripheral pulses: radial pulses present and posterior tibial pulses present GI Inspection: No distended, Yes Abdominal panniculus present and Yes obesity Palpation (GI): Soft to palpation, Tenderness to palpation present (GI) in the RLQ, no guarding, not rigid and No hepatosplenomegaly present Percussion: Yes normal to percussion Auscultation: normal bowel sounds Rectal Exam - Male: Yes deferred Skin General skin exam: no rashes or lesions noted, turgor normal, skin not dry, no jaundice, No spider nevi and no striae Rashes: no rashes Nails: normal Neuro General: oriented to person, oriented to place and oriented to time Cranial nerves: Yes Equal, round and reactive pupils present and Yes Normal hearing present Speech: No Abnormal speech present Extrem General: Yes normal to inspection, No clubbing, No cyanosis and No edema Psych Appearance: grossly normal and well kempt Mental Status: mental status grossly normal Speech and movement: Normal speech and movement present Affect: normal affect Attitude: cooperative Thought process: Normal thought process present and not confabulating Thought content: Normal thought content present Insight: Limited insight present (Psych) Judgement: Limited judgement present (Psych) Assessment & Plan Assessment & Plan (1) Generalized abdominal pain: Code(s): R10.84 - Generalized abdominal pain Category: Medical (2) Diarrhea: Code(s): R19.7 - Diarrhea, unspecified Category: Medical (3) Elevated fecal calprotectin: Code(s): R19.5 - Other fecal abnormalities Category: Medical (4) Crohn's colitis: Code(s): K50.10 - Crohn's disease of large intestine without complications Category: Medical (5) Crohn's colitis: Code(s): K50.10 - Crohn's disease of large intestine without complications Category: Medical (6) Tubular adenoma: Comment: TA's 2020, 2021 and 2022 at [facility] [place], repeat 3 years Code(s): D36.9 - Benign neoplasm, unspecified site Category: Medical Plan Austrian #[id number] Apparently the patient is here for a 2nd opinion, I do not know where he has had any prior workup or who the prior clinical documentation nurse was but it would appear to be Dr. Arroyo a [facility]. He found the carafate helpful with his diarrhea. But a week ago it was more liquid and black and now it is more pasty. Given the findings of an elevated CRP and a markedly elevated fecal calprotectin in the absence of an infection or allergy I think we should try treating him for inflammatory bowel disease. Because he is morbidly obese, a diabetic, and has some cardiac problems I want to put him on budesonide to try to spare him the more systemic affects of prednisone. Will also start him on mesalamine. Hopefully if this is successful we can even stop the Carafate. I explained to him that inflammatory bowel disease diff can be difficult to diagnose initially because of the exacerbating remitting nature of the disease. Return office visit in 4 weeks Orders: Orders [facility] R10.84 - Generalized abdominal pain, R19.5 - Other fecal abnormalities, R19.7 - Diarrhea, unspecified [facility] R10.84 - Generalized abdominal pain, R19.5 - Other fecal abnormalities, R19.7 - Diarrhea, unspecified Medications: New mesalamine (Lialda) 2.4 grams (2 x 1.2 gram) PO BID 120 tabs 6RF 30 days K50.10 - Crohn's disease of large intestine without complications budesonide DR-ER 9 mg (3 x 3 mg) PO QAM 90 ea 3RF K50.10 - Crohn's disease of large intestine without complications Coding Level of Care Code Est Pt Level 3 (66817) Diagnoses Generalized abdominal pain R10.84 Diarrhea R19.7 Elevated fecal calprotectin R19.5 Crohn's colitis K50.10 Tubular adenoma D36.9
== END 2024-02-01 11:41 | disposition home or self-care (01) ==
PROVIDERS: PCP Nurse Practitioner Family; Visit Provider Nurse Practitioner
DX: R10.84 Generalized abdominal pain (principal); R19.7 Diarrhea, unspecified; R19.5 Other fecal abnormalities; K50.10 Crohn's disease of large intestine without complications; D36.9 Benign neoplasm, unspecified site
CPT/HCPCS: 99213

== ENCOUNTER → 2024-02-01 10:59 | Outpatient (BNVA) | payer OTHER, SELFPAY | PROVIDERS: PCP Nurse Practitioner Family; Visit Provider Nurse Practitioner | DX: R10.84 Generalized abdominal pain (principal); R19.7 Diarrhea, unspecified; R19.5 Other fecal abnormalities; K50.10 Crohn's disease of large intestine without complications; Z86.010 Personal history of colon polyps | CPT/HCPCS: 99212 ==

== ENCOUNTER 2024-03-03 11:17 | Outpatient (AMB) | payer OTHER, SELFPAY ==
--- NOTE | 2024-03-03 11:27 | A.OFFVIS_ITS ---
Vital Signs 03/03/24 11:28 Height 6 ft 1 in Weight 426 lb 13.039 oz BMI 56.3 BP 127/76 Blood Pressure Location Rt brachial Position Sitting Pulse 101 H Intake Visit Reasons: 4 week follow up IBS Intake Note: Patient here f/u IBS. Patient c/o: constant diarrhea. Patient upset as no improvement. No social life as he has to run to the bathroom after eating. C/o nausea dizziness. 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 Cruz magallon [facility].) He found the carafate helpful with his diarrhea. But a week ago it was more liquid and black and now it is more pasty. Given the findings of an elevated CRP and a markedly elevated fecal calprotectin in the absence of an infection or allergy I think we should try treating him for inflammatory bowel disease. Because he is morbidly obese, a diabetic, and has some cardiac problems I want to put him on budesonide to try to spare him the more systemic affects of prednisone. Will also start him on mesalamine. Hopefully if this is successful we can even stop the Carafate. I explained to him that inflammatory bowel disease diff can be difficult to diagnose initially because of the exacerbating remitting nature of the disease. Return office visit in 4 weeks TODAY'S VISIT Guinean #Sophie Live (Apparently the patient is here for a 2nd opinion, I do not know where he has had any prior workup or who the prior jersey knitter was but it would appear to be Dr. Cruz magallon [facility].) To date the patient has had negative stool cultures, a negative RAST panel for allergies, a negative colonoscopy except for polyps at [facility], he had an elevated CRP and an elevated fecal calprotectin but did not respond to budesonide and mesalamine therapy, he had a negative celiac panel, and an unremarkable CT scan 01/26/2024. He has failed Imodium, fiber bulking therapy, cholestyramine and Carafate. He is on medications that could be contributing to the situation including Trulicity, Daliresp, metformin, spironolactone, magnesium oxide. No improvement with steroids and Liada x 3 weeks. SO, I am left with trying to eliminate medication s/e. Will do atrial of cessation of metformin and adding Viberzi 100mg bid (BMI quite high). The patient is quite tearful and frustrated with the situation. Apparently he presented to the [facility] ER and was put in the waiting room for 3 to straight days and told there were no jersey knitter to see him. He is quite upset with the medical profession in general. ? Daliresp, as this is quite known for severe diarrhea, some evidence in [facility] database that sx go back to 2019 despite his reporting. I will send a note to his dwarf tree grower to see if we can coordinate an opinion about this. ROV 2 weeks. [facility] Medical History (Updated 03/03/24 @ 16:06 by KATHI Webb) Chronic idiopathic constipation Crohn's colitis Abdominal pain Asthma-COPD overlap syndrome COVID-19 Limb swelling Carpal tunnel syndrome on both sides ANIYA treated with BiPAP Chronic respiratory failure Surgical History H/O esophagogastroduodenoscopy H/O colonoscopy Social History Patient Tobacco Use Status: Never used Tobacco Review of Systems Const Denies fatigue, Denies fever(s), Denies night sweats, Denies poor appetite and Denies weight loss ENT Reports Normal hearing present, Denies dental pain, Denies dysphagia, Denies hearing loss, Denies mouth pain, Denies odynophagia, Denies throat swelling, Denies tongue swelling and Reports other (Dentition adequate) Card Reports no additional complaints Resp Reports cough and Reports wheezing GI Details: Reports abdominal pain, Denies melena, Denies bloating, Denies hematochezia, Denies constipation, Denies GI cramping, Denies dysphagia, Denies excessive flatus, Denies early satiety, Denies heartburn, Reports diarrhea, Reports nausea, Denies odynophagia, Reports vomiting and Denies hematemesis Musc Reports abnormal gait Skin/Breast Denies pruritus, Denies lesions, Denies rash and Denies jaundice Neuro Reports Normal hearing present, Denies Abnormal speech present and Reports abnormal gait Psych Reports anxiety, Reports depression, Denies homicidal ideation and Denies suicidal ideation Endo Denies fatigue Aller/Immun Denies throat swelling, Denies tongue swelling and Reports wheezing Physical Exam Vital Signs: Last Vital Signs Pulse 101 H 03/03/24 11:28 BP 127/76 03/03/24 11:28 BMI result Body Mass Index 56.3 Const General: cooperative, no acute distress, well developed and well groomed Nutritional Appearance: well nourished and obese morbidly obese Orientation/consciousness: oriented to person, oriented to place and oriented to time Limitations: language barrier, ambulation with walker and other limitations (? psych) HEENT Head: Yes normocephalic and Yes atraumatic Eyes General: appearance normal, both eyes and all related structures Pupils: Equal, round and reactive pupils present Neck Neck: Yes normal visual inspection and Yes no lymphadenopathy Thyroid: Thyroid normal Resp Effort & Inspection: normal respiratory effort and able to speak in complete sentences Auscultation: rhonchi Cardio Rate: regular rate Rhythm: regular rhythm Heart sounds: Normal, physiologic split S2 sound present Peripheral pulses: radial pulses present and posterior tibial pulses present GI Inspection: No distended, Yes Abdominal panniculus present and Yes obesity Palpation (GI): Soft to palpation, nontender, no guarding, not rigid and No hepatosplenomegaly present Percussion: Yes normal to percussion Auscultation: normal bowel sounds Rectal Exam - Male: Yes deferred Skin General skin exam: no rashes or lesions noted, turgor normal, skin not dry, no jaundice, No spider nevi and no striae Rashes: no rashes Nails: normal Neuro General: oriented to person, oriented to place and oriented to time Cranial nerves: Yes Equal, round and reactive pupils present and Yes Normal hearing present Speech: No Abnormal speech present Extrem General: Yes normal to inspection, No clubbing, No cyanosis and No edema Psych Appearance: grossly normal and well kempt Mental Status: mental status grossly normal Speech and movement: Pressured speech present Affect: Labile affect present, Sad affect present and Irritable affect present Attitude: cooperative Thought process: not confabulating, Impoverished thought process present and Perseverating thought process present Thought content: Normal thought content present Insight: Limited insight present (Psych) and Poor insight present (Psych) Judgement: Limited judgement present (Psych) and Poor judgement present (Psych) Assessment & Plan Assessment & Plan (1) Diarrhea: Code(s): R19.7 - Diarrhea, unspecified Category: Medical (2) Generalized abdominal pain: Code(s): R10.84 - Generalized abdominal pain Category: Medical (3) Crohn's colitis: Code(s): K50.10 - Crohn's disease of large intestine without complications Category: Medical (4) Tubular adenoma: Comment: TA's 2020, 2021 and 2022 at [facility] [place], repeat 3 years Code(s): D36.9 - Benign neoplasm, unspecified site Category: Medical (5) Elevated fecal calprotectin: Code(s): R19.5 - Other fecal abnormalities Category: Medical (6) GERD with esophagitis: Code(s): K21.00 - Gastro-esophageal reflux disease with esophagitis, without bleeding Category: Medical Plan Guinean #Sophie Live (Apparently the patient is here for a 2nd opinion, I do not know where he has had any prior workup or who the prior jersey knitter was but it would appear to be Dr. Cruz magallon [facility].) To date the patient has had negative stool cultures, a negative RAST panel for allergies, a negative colonoscopy except for polyps at [facility], he had an elevated CRP and an elevated fecal calprotectin but did not respond to budesonide and mesalamine therapy, he had a negative celiac panel, and an unremarkable CT scan 01/26/2024. He has failed Imodium, fiber bulking therapy, cholestyramine and Carafate. He is on medications that could be contributing to the situation including Trulicity, Daliresp, metformin, spironolactone, magnesium oxide. No improvement with steroids and Liada x 3 weeks. SO, I am left with trying to eliminate medication s/e. Will do atrial of cessation of metformin and adding Viberzi 100mg bid (BMI quite high). The patient is quite tearful and frustrated with the situation. Apparently he presented to the [facility] ER and was put in the waiting room for 3 to straight days and told there were no jersey knitter to see him. He is quite upset with the medical profession in general. ? Param, as this is quite known for severe diarrhea, some evidence in [facility] database that sx go back to 2020 despite his reporting. I will send a note to his dwarf tree grower to see if we can coordinate an opinion about this. ROV 2 weeks. Medications: New eluxadoline (Viberzi) must administer with a meal/food 100 mg PO BID 60 tabs 5RF Coding Level of Care Code Est Pt Level 4 (74229) Diagnoses Diarrhea R19.7 Generalized abdominal pain R10.84 Crohn's colitis K50.10 Tubular adenoma D36.9 Elevated fecal calprotectin R19.5 GERD with esophagitis K21.00 Time Spent (min) 43
[2024-03-03 11:28] VITALS: BP 127/76; PULSE 101; BMI 56.3
== END 2024-03-03 12:24 | disposition home or self-care (01) ==
PROVIDERS: PCP Nurse Practitioner Family; Visit Provider Nurse Practitioner
DX: R19.7 Diarrhea, unspecified (principal); R10.84 Generalized abdominal pain; K50.10 Crohn's disease of large intestine without complications; D36.9 Benign neoplasm, unspecified site; R19.5 Other fecal abnormalities; K21.00 Gastro-esophageal reflux disease with esophagitis, without bleeding
CPT/HCPCS: 99214

== ENCOUNTER → 2024-03-03 11:17 | Outpatient (BNVA) | payer OTHER, SELFPAY | PROVIDERS: PCP Nurse Practitioner Family; Visit Provider Nurse Practitioner | DX: K21.00 Gastro-esophageal reflux disease with esophagitis, without bleeding (principal); K50.10 Crohn's disease of large intestine without complications; R19.7 Diarrhea, unspecified; R10.84 Generalized abdominal pain; R19.5 Other fecal abnormalities; D36.9 Benign neoplasm, unspecified site | CPT/HCPCS: 99212 ==

== ENCOUNTER 2024-03-17 10:19 | Outpatient (AMB) | payer OTHER, SELFPAY ==
--- NOTE | 2024-03-17 10:20 | A.OFFVIS_ITS ---
Vital Signs 03/17/24 10:31 Height 6 ft 1 in Weight 424 lb 2.71 oz BMI 56.0 BP 112/68 Blood Pressure Location Lt brachial Position Sitting Pulse 90 Intake Visit Reasons: 2 week follow up Intake Note: Jhonny returns to in office visit today in follow up of diarrhea. CC: Patient c/o abdominal cramps, and states that the shantell is working a little. He states that he sometimes has loose stools. 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 Recruiter Required: Yes Accompanied by: Self / Same As Patient Allergies codeine Allergy (Intermediate, Verified 03/17/24 10:37) rash HPI HPI 2 week follow up: Details: Assessment & Plan (1) Diarrhea: Code(s): R19.7 - Diarrhea, unspecified Category: Medical (2) Generalized abdominal pain: Code(s): R10.84 - Generalized abdominal pain Category: Medical (3) Crohn's colitis: Code(s): K50.10 - Crohn's disease of large intestine without complications Category: Medical (4) Tubular adenoma: Comment: TA's 2020, 2021 and 2022 at [facility], repeat 3 years Code(s): D36.9 - Benign neoplasm, unspecified site Category: Medical (5) Elevated fecal calprotectin: Code(s): R19.5 - Other fecal abnormalities Category: Medical (6) GERD with esophagitis: Code(s): K21.00 - Gastro-esophageal reflux disease with esophagitis, without bleeding Category: Medical Plan Micronesian #Sophie Live (Apparently the patient is here for a 2nd opinion, I do not know where he has had any prior workup or who the prior regulatory submissions associate was but it would appear to be Dr. Arroyo a [facility].) To date the patient has had negative stool cultures, a negative RAST panel for allergies, a negative colonoscopy except for polyps at [facility], he had an elevated CRP and an elevated fecal calprotectin but did not respond to budesonide and mesalamine therapy, he had a negative celiac panel, and an unremarkable CT scan 01/26/2024. He has failed Imodium, fiber bulking therapy, cholestyramine and Carafate. He is on medications that could be contributing to the situation including Trulicity, Daliresp, metformin, spironolactone, magnesium oxide. No improvement with steroids and Liada x 3 weeks. SO, I am left with trying to eliminate medication s/e. Will do atrial of cessation of metformin and adding Viberzi 100mg bid (BMI quite high). The patient is quite tearful and frustrated with the situation. Apparently he presented to the [facility] ER and was put in the waiting room for 3 to straight days and told there were no regulatory submissions associate to see him. He is quite upset with the medical profession in general. ? Daliresp, as this is quite known for severe diarrhea, some evidence in [facility] database that sx go back to 2019 despite his reporting. I will send a note to his miniature model maker to see if we can coordinate an opinion about this. ROV 2 weeks. Medications: New eluxadoline (Viberzi) must administer with a meal/food 100 mg PO BID 60 tabs 5RF TODAY'S VISIT Micronesian #Andrei Jacky (Apparently the patient is here for a 2nd opinion, I do not know where he has had any prior workup or who the prior regulatory submissions associate was but it would appear to be Dr. Arroyo a [facility].) He did stop the metformin and the Daliresp. His derrick helper is thinking of moving him from Trulicity to Ozempic. His breathing has been ok, I did communicate with pulmonology and they ok'ed a trial of stopping it. He is having less episodes of diarrhea with some soft stools, but still some diarrhea on the budesonide 9mg qd. His A1c is only up a bit with this, and I explain this to him. He still has quite a lot of pain in the upper midline and lower midline. This pain is worse when he is moving his bowels. It sounds like rectal spams or proctalgia fugax. I want him to bring in all of his medications so that I can add some (? take out Carafate) and add some. I will add mesalamie and increase the budesinide to 18mg r/ this body mass. His BMI is 54. He admits he is a little bit better since we started. He even had one solid stool! His PCP is asking about scope, and I had held off to try to stabilize his colon, but I will order this now; since we are scheduling out a ways. ROV 6 weeks. [facility] Medical History Chronic idiopathic constipation Crohn's colitis Abdominal pain Asthma-COPD overlap syndrome COVID-19 Limb swelling Carpal tunnel syndrome on both sides ANIYA treated with BiPAP Chronic respiratory failure Surgical History H/O esophagogastroduodenoscopy H/O colonoscopy Social History Patient Tobacco Use Status: Never used Tobacco Review of Systems Const Denies fatigue, Denies fever(s), Denies night sweats, Denies poor appetite and Denies weight loss ENT Reports Normal hearing present, Denies dental pain, Denies dysphagia, Denies hearing loss, Denies mouth pain, Denies odynophagia, Denies throat swelling, Denies tongue swelling and Reports other (Dentition adequate) Card Reports no additional complaints and Reports dyspnea on exertion Resp Reports dyspnea on exertion GI Details: Reports abdominal pain, Denies melena, Denies bloating, Denies hematochezia, Denies constipation, Reports GI cramping, Denies dysphagia, Denies excessive flatus, Denies early satiety, Reports heartburn, Reports diarrhea, Denies nausea, Denies odynophagia, Denies vomiting and Denies hematemesis Musc Reports abnormal gait, Reports back pain and Reports arthralgias Skin/Breast Denies pruritus, Denies lesions, Denies rash and Denies jaundice Neuro Reports Normal hearing present, Denies Abnormal speech present and Reports abnormal gait Endo Denies fatigue Aller/Immun Denies throat swelling and Denies tongue swelling Physical Exam Vital Signs: Last Vital Signs Pulse 90 03/17/24 10:31 BP 112/68 03/17/24 10:31 BMI result Body Mass Index 56.0 Const General: cooperative, no acute distress, well developed and well groomed Nutritional Appearance: well nourished and obese morbidly obese Orientation/consciousness: oriented to person, oriented to place and oriented to time Limitations: language barrier and ambulation with walker HEENT Head: Yes normocephalic and Yes atraumatic Eyes General: appearance normal, both eyes and all related structures Pupils: Equal, round and reactive pupils present Neck Neck: Yes normal visual inspection and Yes no lymphadenopathy Thyroid: Thyroid normal Resp Effort & Inspection: normal respiratory effort and able to speak in complete sentences Auscultation: clear to auscultation bilaterally Cardio Rate: regular rate Rhythm: regular rhythm Heart sounds: Normal, physiologic split S2 sound present Peripheral pulses: radial pulses present and posterior tibial pulses present GI Inspection: No distended, Yes Abdominal panniculus present and Yes obesity Palpation (GI): Soft to palpation, nontender, no guarding, not rigid and No hepatosplenomegaly present Percussion: Yes normal to percussion Auscultation: normal bowel sounds Rectal Exam - Male: Yes deferred Skin General skin exam: no rashes or lesions noted, turgor normal, skin not dry, no jaundice, No spider nevi and no striae Rashes: no rashes Nails: normal Neuro General: oriented to person, oriented to place and oriented to time Cranial nerves: Yes Equal, round and reactive pupils present and Yes Normal hearing present Speech: No Abnormal speech present Extrem General: Yes normal to inspection, No clubbing, No cyanosis, Yes edema and Yes venous stasis dermatitis Psych Appearance: grossly normal and well kempt Mental Status: mental status grossly normal Speech and movement: Normal speech and movement present Affect: normal affect Attitude: cooperative Thought process: Normal thought process present and not confabulating Thought content: Normal thought content present Insight: Limited insight present (Psych) Judgement: Limited judgement present (Psych) Assessment & Plan Assessment & Plan (1) Crohn's colitis: Code(s): K50.10 - Crohn's disease of large intestine without complications Category: Medical (2) Elevated fecal calprotectin: Code(s): R19.5 - Other fecal abnormalities Category: Medical (3) Diarrhea: Code(s): R19.7 - Diarrhea, unspecified Category: Medical (4) Generalized abdominal pain: Code(s): R10.84 - Generalized abdominal pain Category: Medical (5) GERD with esophagitis: Code(s): K21.00 - Gastro-esophageal reflux disease with esophagitis, without bleeding Category: Medical (6) Hemorrhoids: Code(s): K64.9 - Unspecified hemorrhoids Category: Medical Plan Micronesian #Andrei Rico (Apparently the patient is here for a 2nd opinion, I do not know where he has had any prior workup or who the prior regulatory submissions associate was but it would appear to be Dr. Arroyo a [facility].) He did stop the metformin and the Daliresp. His derrick helper is thinking of moving him from Trulicity to Ozempic. His breathing has been ok, I did communicate with pulmonology and they ok'ed a trial of stopping it. He is having less episodes of diarrhea with some soft stools, but still some diarrhea on the budesonide 9mg qd. His A1c is only up a bit with this, and I explain this to him. He still has quite a lot of pain in the upper midline and lower midline. This pain is worse when he is moving his bowels. It sounds like rectal spams or proctalgia fugax. I want him to bring in all of his medications so that I can add some (? take out Carafate) and add some. I will add mesalamie and increase the budesinide to 18mg r/ this body mass. His BMI is 54. He admits he is a little bit better since we started. He even had one solid stool! His PCP is asking about scope, and I had held off to try to stabilize his colon, but I will order this now; since we are scheduling out a ways. ROV 6 weeks. Orders: Orders Colonoscopy - GI Use Only Today K50.10 - Crohn's disease of large intestine without complications Medications: New lidocaine HCl-hydrocortison ac 3-0.5 % 1 appl [place] BID 98 grams 6RF K64.9 - Unspecified hemorrhoids peg 3350-electrolytes 236-22.74-6.74 -5.86 gram (Golytely) until fecal effluent is clear; do not exceed a total volume of 2,000 mL 240 mL PO Q10M 4,000 mL 0RF 1 day Z12.11 - Encounter for screening for malignant neoplasm of colon mesalamine (Lialda) 2.4 grams (2 x 1.2 gram) PO BID 120 tabs 6RF 30 days K50.10 - Crohn's disease of large intestine without complications Changed From budesonide DR-ER 9 mg (3 x 3 mg) PO QAM 90 ea 3RF K50.10 - Crohn's disease of large intestine without complications To budesonide DR-ER 18 mg (6 x 3 mg) PO QAM 180 ea 3RF K50.10 - Crohn's disease of large intestine without complications Coding Level of Care Code Est Pt Level 3 (70834) Diagnoses Crohn's colitis K50.10 Elevated fecal calprotectin R19.5 Diarrhea R19.7 Generalized abdominal pain R10.84 GERD with esophagitis K21.00 Hemorrhoids K64.9
[2024-03-17 10:31] VITALS: BP 112/68; PULSE 90; BMI 56.0
== END 2024-03-17 11:21 | disposition home or self-care (01) ==
PROVIDERS: PCP Nurse Practitioner Family; Visit Provider Nurse Practitioner
DX: K50.10 Crohn's disease of large intestine without complications (principal); R19.5 Other fecal abnormalities; R19.7 Diarrhea, unspecified; R10.84 Generalized abdominal pain; K21.00 Gastro-esophageal reflux disease with esophagitis, without bleeding; K64.9 Unspecified hemorrhoids
CPT/HCPCS: 99213

== ENCOUNTER → 2024-03-17 10:19 | Outpatient (BNVA) | payer OTHER, SELFPAY | PROVIDERS: PCP Nurse Practitioner Family; Visit Provider Nurse Practitioner | DX: K50.10 Crohn's disease of large intestine without complications (principal); K21.00 Gastro-esophageal reflux disease with esophagitis, without bleeding; K64.9 Unspecified hemorrhoids; R19.5 Other fecal abnormalities; R19.7 Diarrhea, unspecified; R10.84 Generalized abdominal pain | CPT/HCPCS: 99212 ==

== ENCOUNTER 2024-03-27 10:28 | Outpatient (AMB) | payer OTHER, SELFPAY ==
--- NOTE | 2024-03-27 10:47 | MHC.OFFVIS ---
Vital Signs 03/27/24 10:48 Height 6 ft 1 in Weight 434 lb BMI 57.3 Pulse 80 Pulse Source Pulse Oximeter Pulse Oximetry (%) 96 Oxygen Delivery Method Room Air Comment 4 Liters Oxygen([facility]) Intake Visit Reasons: wendy Party Host Required: No Allergies codeine Allergy (Intermediate, Verified 03/27/24 10:49) rash HPI Comments Details: The patient is a 58-year-old gentleman well known to me with a history of COPD, chronic hypoxic and hypercarbic respiratory failure, severe WENDY date and morbid obesity. The patient states that he has been having worsening cough for the last several days and then started having some issues with blood in his sputum. It is mixed in with sputum and today he did not have any hemoptysis. She complains some right-sided chest discomfort. Does about moderate severity. There is a pleuritic component. The patient is very concerned about his health. He was seen a couple weeks ago with hemoptysis. He did have blood work including a D-dimer that was negative. He also had an x-ray that was negative. Ultimately the patient started complaining of left-sided chest discomfort. Therefore he was admitted to [facility] where he was ruled out for a myocardial infarction. He did tell him about the bleeding but he feels like he was ignore. Did do an x-ray at [facility] which mention atelectasis. In the meantime the patient continues to have bright red blood upon coughing. He is not taking any blood thinners at this time. He does feel some discomfort also in the right lung. We did D-dimer being negative some likely to be a blood clot although a pulmonary process is concerning. The patient is also stating that he has had some weight loss. The patient will undergo a stat CT scan at this time. We try to get a CT scan of the chest urgently but it was denied by his insurance company for unclear reason as he already had an abnormal chest x-ray having chest pains and coughing of blood and everything was documented. Based on the urgency I requested that he go to the ER based on more bleeding. He went to [facility] and was very busy. Therefore decided to leave against medical advise. Finally had CT scan of the chest with demonstrating no acute disease is very suggestive that the bleeding is coming from the GI tract. The patient did undergo an EGD demonstrating esophagitis and erosive gastritis with blood in the stomach. No obvious also appreciated. His Prilosec was increased from 20 mg to 40 mg. I explained to the patient that the use of prednisone is likely contributing to the gastritis and esophagitis. Therefore, we need to avoid it if possible. He is having increased wheezing at this time. Will try to maximizing his inhaled cortical steroids in the meantime also maximize his proton pump inhibitor. 03/16/2023 the patient is here for a pulmonary follow-up visit. The patient overall is doing okay. He continues using the BiPAP although he feels that BiPAP is breaking down and stopping to work in the knee as to restart the machine. [facility] already went to check it sometime ago. I will connect with [facility] to see they can send somebody to check the machine again. If the machine is older than 5 years will try to get him a new 1. The patient is also getting oxygen through them and he does use it with activity and also want while using the BiPAP. Respiratory beckham he still complaining of chest congestion and chest wheezing. She he is using his respiratory inhalers. I will keep the same wants to make sure we can keep him with good adherence but will go ahead and switch his antibiotics to doxycycline for a couple weeks to help him with chest congestion. Will follow-up in 3-4 months to see how he is doing. The venous gas with allows to see how well he is doing the BiPAP. 08/05/2023 the patient is here for pulmonary follow-up visit. He is complaining about BiPAP. The BiPAP broke down and he had to get a replacement from the [employer] company. Currently the BiPAP being looked that to see if he can be repaired and efficacy not then he will get a replacement as per his insurance policy. The patient continues to have dyspnea on exertion and he does not his oxygen tanks with him. He says that he does not get enough portability with smaller tanks that he has to fill. I will going to have to reach out to the [employer] company to see we can do and if they have available portable oxygen concentrator that will provide him with better portability outside of the home. We did do a we have walking oximetry the patient was able to maintain a pulse ox of 92% on 3 L pulse. We will also request a POC if the [employer] provides them. In addition to that he continues using the continues oxygen with the BiPAP at nighttime. He is concerned because he is losing power a lot in the home and is concerned that he does not having a backup oxygen to keep the BiPAP going. Therefore I will reach out to the [employer] company to see if they can help him with that issue of backup oxygen tanks. The patient continues uses respiratory therapy. He will follow-up in 3 months. 11/05/2023 the patient is here for a pulmonary follow-up visit. He is doing fairly well from a respiratory status. He did get a portable oxygen concentrator through his [employer] company, [facility]. The portable oxygen concentrator has been avidity affecting beneficial. I did going to how to use it with him to make sure that he was comfortable with. It is provide significant relief at this time. He is also using BiPAP at nighttime with the oxygen and this also has been very affecting beneficial. He does use the BiPAP for more than 4 hours a night. In the therapy has been affecting beneficial. His major concerns his significant weight loss. His dates that he is lost around 50 lb in the last year. In addition to that he is having severe abdominal discomfort along with diarrhea and discomfort in the epigastric area decreased p.o. intake. He is concerned he could be having some type of cancer or symptoms very serious based on his weight loss. The patient needs to be evaluated from a GI as big. Therefore put a referral in at this time. We also reviewed his medications. He understands he is taking Daliresp. He understands this medication can also cause weight loss in GI symptoms. Although, he has been taking Daliresp for many years and he is tolerated very well. Therefore, I will consider stopping the medication only if after full workup there was no clear etiology of his symptoms. 03/27/2024 the patient is here for a pulmonary follow-up visit. The patient has been doing well from a respiratory status. He has been responding well to the portable oxygen concentrator. He has also using the oxygen with a concentrator at home. He has been using the BiPAP as prescribed. The therapy has been affecting beneficial. For some reason has not been able to get his inhalers. I did recent all his inhalers and pharmacy with refills. Because of his GI issues he was taken off the Daliresp briefly to see if that improves his symptoms. Although he is having more chest congestion. He does have significant chronic bronchitis at this time. Will go ahead and try him on azithromycin and also prednisone to see if we can improve his symptoms. If the patient continues significant bronchitis will have to speak to GI about starting his Daliresp. Right now he is doing well and is able to proceed was anesthesia and endoscopy for his evaluation of diarrhea. [facility] Medical History Chronic idiopathic constipation Crohn's colitis Abdominal pain Asthma-COPD overlap syndrome COVID-19 Limb swelling Carpal tunnel syndrome on both sides WENDY treated with BiPAP Chronic respiratory failure Surgical History H/O esophagogastroduodenoscopy H/O colonoscopy Social History Patient Tobacco Use Status: Never used Tobacco Review of Systems Const Reports difficulty sleeping, Denies night sweats and Reports weight loss ENT Denies change in voice, Denies lip swelling, Denies mouth pain and Denies tongue swelling Card Denies chest pain, Reports leg edema, Denies dyspnea and Reports dyspnea on exertion Resp Reports chest congestion, Reports cough, Denies hemoptysis, Denies dyspnea, Reports dyspnea on exertion and Reports wheezing GI Denies hematochezia, Reports dyspepsia, Reports heartburn and Denies hematemesis Musc Denies no additional complaints and Reports myalgias Neuro Denies Neuro-related abnormal movements Psych Denies no additional complaints Eliazar/Lymph Denies easy bleeding and Denies lymphadenopathy Aller/Immun Denies lip swelling, Denies tongue swelling and Reports wheezing Physical Exam Vital Signs: Last Vital Signs Pulse 80 03/27/24 10:48 Pulse Ox 96 03/27/24 10:48 Oxygen Delivery Method Room Air 03/27/24 10:48 BMI result Body Mass Index 57.3 Const General: alert Eyes Pupils: Equal, round and reactive pupils present Neck Neck: Yes normal visual inspection, Yes full ROM and Yes no lymphadenopathy Chest Chest palpation & inspection: normal inspection of the chest Resp Effort & Inspection: normal respiratory effort Auscultation: rhonchi, no wheezes and diminished lung sounds Cardio Rate: regular rate Rhythm: regular rhythm Heart sounds: S1 normal heart sound present and S2 normal heart sound present GI Palpation (GI): Soft to palpation Auscultation: normal bowel sounds General: Yes no CVA tenderness Back/Spine/Pelvis Back: no CVA tenderness Skin General skin exam: rashes and/or lesions noted Neuro Cranial nerves: Yes Equal, round and reactive pupils present Extrem General: Yes edema Assessment & Plan Assessment & Plan (1) Chronic respiratory failure: Code(s): J96.10 - Chronic respiratory failure, unspecified whether with hypoxia or hypercapnia Category: Medical Qualifiers: Respiratory failure complication: hypoxia and hypercapnia Qualified Code(s): J96.11 - Chronic respiratory failure with hypoxia; J96.12 - Chronic respiratory failure with hypercapnia (2) WENDY treated with BiPAP: Code(s): G47.33 - Obstructive sleep apnea (adult) (pediatric) Category: Medical (3) Asthma-COPD overlap syndrome: Code(s): J44.9 - Chronic obstructive pulmonary disease, unspecified Category: Medical (4) Abdominal pain: Code(s): R10.9 - Unspecified abdominal pain Category: Medical Qualifiers: Abdominal location: upper abdomen, unspecified Qualified Code(s): R10.10 - Upper abdominal pain, unspecified (5) Unintentional weight loss: Comment: >50 lbs in less then 3 months Code(s): R63.4 - Abnormal weight loss Category: Medical (6) Pre-op chest exam: Code(s): Z01.811 - Encounter for preprocedural respiratory examination Category: Medical Plan continue Symbicort short-acting beta agonist as needed diuresis as tolerated needs to continue using his oxygen: He does qualify for 3-4 L pulse with activity. POC needs 4 Lmin with his BiPAP at nighttime while sleeping. continue BiPAP with 4 L oxygen ([facility]) continue Singulair holding Daliresp start Azithromycin start prednisone taper follow-up in 3-4 months Medications: New azithromycin Take 1 tablet on Wednesday/Wednesday/Wednesday 250 mg PO 3XW 12 tabs 1RF 28 days K21.9 - Gastro-esophageal reflux disease without esophagitis prednisone orally daily; orally daily: 2 daily x 7 days, then 1 tab daily x 7 days 21 tabs 0RF 14 days Changed From Symbicort 160-4.5 mcg/actuation (budesonide-formoterol) 2 puffs PO BID 10.2 grams 0RF NS J44.9 - Chronic obstructive pulmonary disease, unspecified To Symbicort 160-4.5 mcg/actuation (budesonide-formoterol) 2 puffs PO BID 10.2 grams 11RF 30 days NS J44.9 - Chronic obstructive pulmonary disease, unspecified From albuterol sulfate 90 mcg/actuation (ProAir HFA) 2 puffs PO Q6H 30 days PRN 8.5 grams 11RF shortness of breath or wheezing To albuterol sulfate 90 mcg/actuation 2 puffs PO Q6H PRN 8.5 grams 11RF shortness of breath or wheezing 30 days From ipratropium-albuterol 20-100 mcg/actuation (Combivent Respimat) 1 puff PO QID 4 grams 0RF To ipratropium-albuterol 20-100 mcg/actuation (Combivent Respimat) 1 puff inhalation QID 4 grams 11RF 30 days Refilled montelukast 10 mg PO BEDTIME 90 tabs 3RF On Hold roflumilast Hold Comment: Doctor's Order 500 mcg PO DAILY 90 tabs 0RF Coding Level of Care Code Est Pt Level 4 (86796) Diagnoses Chronic respiratory failure with hypoxia and hypercapnia J96.11; J96.12 Respiratory failure complication: hypoxia and hypercapnia WENDY treated with BiPAP G47.33 Asthma-COPD overlap syndrome J44.9 Pain of upper abdomen R10.10 Abdominal location: upper abdomen, unspecified Unintentional weight loss R63.4 Pre-op chest exam Z01.811 Time Spent (min) 16
[2024-03-27 10:48] VITALS: PULSE 80; O2SAT 96; BMI 57.3
== END 2024-03-27 11:15 | disposition home or self-care (01) ==
PROVIDERS: PCP Nurse Practitioner Family; Visit Provider Hospitalist
DX: J96.11 Chronic respiratory failure with hypoxia (principal); J96.12 Chronic respiratory failure with hypercapnia; G47.33 Obstructive sleep apnea (adult) (pediatric); J44.9 Chronic obstructive pulmonary disease, unspecified; R10.10 Upper abdominal pain, unspecified; R63.4 Abnormal weight loss; Z01.811 Encounter for preprocedural respiratory examination
CPT/HCPCS: 99214

== ENCOUNTER → 2024-03-27 10:28 | Outpatient (BNVA) | payer OTHER, SELFPAY | PROVIDERS: PCP Nurse Practitioner Family; Visit Provider Hospitalist | DX: Z01.811 Encounter for preprocedural respiratory examination (principal); J44.9 Chronic obstructive pulmonary disease, unspecified; J96.11 Chronic respiratory failure with hypoxia; J96.12 Chronic respiratory failure with hypercapnia; G47.33 Obstructive sleep apnea (adult) (pediatric); R10.10 Upper abdominal pain, unspecified; Z99.81 Dependence on supplemental oxygen | CPT/HCPCS: 99212 ==

== ENCOUNTER 2024-04-28 11:34 | Outpatient (AMB) | payer OTHER, SELFPAY ==
[2024-04-28 11:39] VITALS: BP 119/60; PULSE 85; BMI 56.4
--- NOTE | 2024-04-28 11:39 | MHC.OFFVIS ---
Vital Signs 04/28/24 11:39 Height 6 ft 1 in Weight 427 lb 11.148 oz BMI 56.4 BP 119/60 Blood Pressure Location Rt brachial Position Sitting Pulse 85 Intake Visit Reasons: 6 weeks follow up Intake Note: Jhonny returns to in office 6 weeks follow up of Chron's colitis. CC: Patient reports that he is doing better from the diarrhea. Accompanied by: Self / Same As Patient Allergies codeine Allergy (Intermediate, Verified 04/28/24 11:47) rash HPI HPI 6 weeks follow up: Details: Assessment & Plan (1) Crohn's colitis: Code(s): K50.10 - Crohn's disease of large intestine without complications Category: Medical (2) Elevated fecal calprotectin: Code(s): R19.5 - Other fecal abnormalities Category: Medical (3) Diarrhea: Code(s): R19.7 - Diarrhea, unspecified Category: Medical (4) Generalized abdominal pain: Code(s): R10.84 - Generalized abdominal pain Category: Medical (5) GERD with esophagitis: Code(s): K21.00 - Gastro-esophageal reflux disease with esophagitis, without bleeding Category: Medical (6) Hemorrhoids: Code(s): K64.9 - Unspecified hemorrhoids Category: Medical Plan Bangl[place]hi #Andrei Live (Apparently the patient is here for a 2nd opinion, I do not know where he has had any prior workup or who the prior principal electrical engineer was but it would appear to be Dr. Cruz magallon [facility].) He did stop the metformin and the Daliresp. His formstone fitter is thinking of moving him from Trulicity to Ozempic. His breathing has been ok, I did communicate with pulmonology and they ok'ed a trial of stopping it. He is having less episodes of diarrhea with some soft stools, but still some diarrhea on the budesonide 9mg qd. His A1c is only up a bit with this, and I explain this to him. He still has quite a lot of pain in the upper midline and lower midline. This pain is worse when he is moving his bowels. It sounds like rectal spams or proctalgia fugax. I want him to bring in all of his medications so that I can add some (? take out Carafate) and add some. I will add mesalamie and increase the budesinide to 18mg r/ this body mass. His BMI is 54. He admits he is a little bit better since we started. He even had one solid stool! His PCP is asking about scope, and I had held off to try to stabilize his colon, but I will order this now; since we are scheduling out a ways. ROV 6 weeks. Orders: Orders Colonoscopy - GI Use Only Today K50.10 - Crohn's disease of large intestine without complications Medications: New lidocaine HCl-hydrocortison ac 3-0.5 % 1 appl [place] BID 98 grams 6RF K64.9 - Unspecified hemorrhoids peg 3350-electrolytes 236-22.74-6.74 -5.86 gram (Golytely) until fecal effluent is clear; do not exceed a total volume of 2,000 mL 240 mL PO Q10M 4,000 mL 0RF 1 day Z12.11 - Encounter for screening for malignant neoplasm of colon mesalamine (Lialda) 2.4 grams (2 x 1.2 gram) PO BID 120 tabs 6RF 30 days K50.10 - Crohn's disease of large intestine without complications Changed From budesonide DR-ER 9 mg (3 x 3 mg) PO QAM 90 ea 3RF K50.10 - Crohn's disease of large intestine without complications To budesonide DR-ER 18 mg (6 x 3 mg) PO QAM 180 ea 3RF K50.10 - Crohn's disease of large intestine without complications COLONOSCOPY 08/17/2024 BIOPSY TODAY'S VISIT Bangladeshi #Mariano Jacky (Apparently the patient is here for a 2nd opinion, I do not know where he has had any prior workup or who the prior principal electrical engineer was but it would appear to be Dr. Cruz magallon [facility].) HE FORGOT TO TAKE HIS MEDICATIONS. I want him to bring them because I am uncertain if he is still taking Carafate or the Viberzi. Also we are going to need to begin to talk about a weaning schedule for the budesonide once he is stabilized on the mesalamine. Of course if the mesalamine fails stabilize and we need to consider something like. I really think the most likely diagnosis now is Crohn's since he has had no food allergies, no infection and no other reason for his diarrhea (with possible exception of his daily wrist). Microscopic colitis could also still be in the differential as this also would respond steroids. He is back on his daily rest which of course I would like to encourage given the severity of his respiratory. He is now having solid BM's!! The only problem is that he has pain when he is moving his bowels in the suprapubic area. I think this is something that will improve over time. Return office visit in 6 weeks to go over his medications and to make sure he sustains his response. [facility] Medical History Chronic idiopathic constipation Crohn's colitis Abdominal pain Asthma-COPD overlap syndrome COVID-19 Limb swelling Carpal tunnel syndrome on both sides ANIYA treated with BiPAP Chronic respiratory failure Surgical History H/O esophagogastroduodenoscopy H/O colonoscopy Social History Patient Tobacco Use Status: Never used Tobacco Review of Systems Const Denies fatigue, Denies fever(s), Denies night sweats, Denies poor appetite and Denies weight loss ENT Reports Normal hearing present, Denies dental pain, Denies dysphagia, Denies hearing loss, Denies mouth pain, Denies odynophagia, Denies throat swelling, Denies tongue swelling and Reports other (Dentition adequate) Card Reports no additional complaints Resp Reports no additional complaints GI Details: Denies abdominal pain, Denies melena, Denies bloating, Denies hematochezia, Denies constipation, Reports GI cramping, Denies dysphagia, Denies excessive flatus, Denies early satiety, Reports heartburn, Reports diarrhea, Denies nausea, Denies odynophagia, Denies vomiting and Denies hematemesis Musc Reports abnormal gait, Reports back pain, Reports myalgias and Reports arthralgias Skin/Breast Denies pruritus, Denies lesions, Denies rash and Denies jaundice Neuro Reports Normal hearing present, Denies Abnormal speech present and Reports abnormal gait Endo Denies fatigue Aller/Immun Denies throat swelling and Denies tongue swelling Physical Exam Vital Signs: Last Vital Signs Pulse 85 04/28/24 11:39 BP 119/60 04/28/24 11:39 BMI result Body Mass Index 56.4 Const General: cooperative, no acute distress, well developed and well groomed Nutritional Appearance: well nourished and obese Orientation/consciousness: oriented to person, oriented to place and oriented to time Limitations: language barrier and ambulation with cane HEENT Head: Yes normocephalic and Yes atraumatic Eyes General: appearance normal, both eyes and all related structures Pupils: Equal, round and reactive pupils present Neck Neck: Yes normal visual inspection and Yes no lymphadenopathy Thyroid: Thyroid normal Resp Effort & Inspection: normal respiratory effort and able to speak in complete sentences Auscultation: clear to auscultation bilaterally Cardio Rate: regular rate Rhythm: regular rhythm Heart sounds: Normal, physiologic split S2 sound present Peripheral pulses: radial pulses present and posterior tibial pulses present GI Inspection: No distended, Yes Abdominal panniculus present and Yes obesity Palpation (GI): Soft to palpation, nontender, no guarding, not rigid and No hepatosplenomegaly present Percussion: Yes normal to percussion Auscultation: normal bowel sounds Rectal Exam - Male: Yes deferred Skin General skin exam: no rashes or lesions noted, turgor normal, skin not dry, no jaundice, No spider nevi and no striae Rashes: no rashes Nails: normal Neuro General: oriented to person, oriented to place and oriented to time Cranial nerves: Yes Equal, round and reactive pupils present and Yes Normal hearing present Speech: No Abnormal speech present Extrem General: Yes normal to inspection, No clubbing, No cyanosis and No edema Psych Appearance: grossly normal and well kempt Mental Status: mental status grossly normal Speech and movement: Normal speech and movement present Affect: normal affect Attitude: cooperative Thought process: Normal thought process present and not confabulating Thought content: Normal thought content present Insight: Limited insight present (Psych) Judgement: Limited judgement present (Psych) Assessment & Plan Assessment & Plan (1) Crohn's colitis: Code(s): K50.10 - Crohn's disease of large intestine without complications Category: Medical (2) GERD with esophagitis: Code(s): K21.00 - Gastro-esophageal reflux disease with esophagitis, without bleeding Category: Medical Plan [place] #Mariano Rico (Apparently the patient is here for a 2nd opinion, I do not know where he has had any prior workup or who the prior principal electrical engineer was but it would appear to be Dr. Arroyo a [facility].) HE FORGOT TO TAKE HIS MEDICATIONS. I want him to bring them because I am uncertain if he is still taking Carafate or the Viberzi. Also we are going to need to begin to talk about a weaning schedule for the budesonide once he is stabilized on the mesalamine. Of course if the mesalamine fails stabilize and we need to consider something like. I really think the most likely diagnosis now is Crohn's since he has had no food allergies, no infection and no other reason for his diarrhea (with possible exception of his daily wrist). Microscopic colitis could also still be in the differential as this also would respond steroids. He is back on his daily rest which of course I would like to encourage given the severity of his respiratory. He is now having solid BM's!! The only problem is that he has pain when he is moving his bowels in the suprapubic area. I think this is something that will improve over time. Return office visit in 6 weeks to go over his medications and to make sure he sustains his response. Coding Level of Care Code Est Pt Level 3 (21971) Diagnoses Crohn's colitis K50.10 GERD with esophagitis K21.00
== END 2024-04-28 13:32 | disposition home or self-care (01) ==
PROVIDERS: PCP Nurse Practitioner Family; Visit Provider Nurse Practitioner
DX: K50.10 Crohn's disease of large intestine without complications (principal); K21.00 Gastro-esophageal reflux disease with esophagitis, without bleeding
CPT/HCPCS: 99213

== ENCOUNTER → 2024-04-28 11:34 | Outpatient (BNVA) | payer OTHER, SELFPAY | PROVIDERS: PCP Nurse Practitioner Family; Visit Provider Nurse Practitioner | DX: K50.10 Crohn's disease of large intestine without complications (principal); K21.00 Gastro-esophageal reflux disease with esophagitis, without bleeding | CPT/HCPCS: 99212 ==

== ENCOUNTER 2024-06-16 12:05 | Outpatient (AMB) | payer OTHER, SELFPAY ==
--- NOTE | 2024-06-16 12:11 | MHC.OFFVIS ---
Vital Signs 06/16/24 12:16 Height 6 ft 1 in Weight 418 lb BMI 55.1 BP 113/64 Blood Pressure Location Lt brachial Position Sitting Pulse 99 Intake Visit Reasons: abdominal bloating/diarrhea Intake Note: Patient follow up for abdominal bloating/diarrhea Patient cc: hemorrhoids discomfort on and off. Tracer Bullet Section Supervisor Required: Yes Tracer Bullet Section Supervisor Name: [facility] [place] Interpeter Accompanied by: Self / Same As Patient Allergies codeine Allergy (Intermediate, Verified 06/16/24 12:13) rash HPI HPI abdominal bloating/diarrhea: Details: Assessment & Plan (1) Crohn's colitis: Code(s): K50.10 - Crohn's disease of large intestine without complications Category: Medical (2) GERD with esophagitis: Code(s): K21.00 - Gastro-esophageal reflux disease with esophagitis, without bleeding Category: Medical Plan [place] #Mariano Jacky (Apparently the patient is here for a 2nd opinion, I do not know where he has had any prior workup or who the prior senior living sales counselor was but it would appear to be Dr. Cruz magallon [facility].) HE FORGOT TO TAKE HIS MEDICATIONS. I want him to bring them because I am uncertain if he is still taking Carafate or the Viberzi. Also we are going to need to begin to talk about a weaning schedule for the budesonide once he is stabilized on the mesalamine. Of course if the mesalamine fails stabilize and we need to consider something like. I really think the most likely diagnosis now is Crohn's since he has had no food allergies, no infection and no other reason for his diarrhea (with possible exception of his Daliresp). Microscopic colitis could also still be in the differential as this also would respond steroids. He is back on his daily rest which of course I would like to encourage given the severity of his respiratory. He is now having solid BM's!! The only problem is that he has pain when he is moving his bowels in the suprapubic area. I think this is something that will improve over time. Return office visit in 6 weeks to go over his medications and to make sure he sustains his response. COLONOSCOPY 08/17/2024 BIOPSY TODAY'S VISIT Turkish #Andrei and (Apparently the patient is here for a 2nd opinion, I do not know where he has had any prior workup or who the prior senior living sales counselor was but it would appear to be Dr. Arroyo a [facility].) He is NOT on the budesonide or mesalamine - apparently he responded better to Viberzi and carafate than these which puts the dx of IBD in doubt. It also elevated his A1C. He only has diarrhea about once a week. He is quite happy with this response compared to when he first started seeing me. I ask him to pay attention to what he may eat that may precipitate the diarrhea, as he may have a food intolerance. He is trying to eat more healthfully. He needs to know the date and time of his upcoming colonoscopy. Will send him to my staff as I don't have the admin view. ROV after colonoscopy keep 08/31/ appt [facility] Medical History (Updated 06/16/24 @ 12:14 by KATHI Wbeb) Chronic epigastric pain Diarrhea Pre-op chest exam Chronic idiopathic constipation Crohn's colitis Abdominal pain Asthma-COPD overlap syndrome COVID-19 Limb swelling Carpal tunnel syndrome on both sides ANIYA treated with BiPAP Chronic respiratory failure Surgical History H/O esophagogastroduodenoscopy H/O colonoscopy Social History Patient Tobacco Use Status: Never used Tobacco Review of Systems Const Denies fatigue, Denies fever(s), Denies night sweats, Denies poor appetite and Denies weight loss ENT Reports Normal hearing present, Denies dental pain, Denies dysphagia, Denies hearing loss, Denies mouth pain, Denies odynophagia, Denies throat swelling, Denies tongue swelling and Reports other (Dentition adequate) Card Reports no additional complaints Resp Reports no additional complaints GI Details: Rectal pain question hemorrhoids Denies abdominal pain, Denies melena, Denies bloating, Denies hematochezia, Denies constipation, Denies GI cramping, Denies dysphagia, Denies excessive flatus, Denies early satiety, Denies heartburn, Reports diarrhea, Denies nausea, Denies odynophagia, Denies vomiting and Denies hematemesis Musc Reports abnormal gait, Reports back pain and Reports arthralgias Skin/Breast Denies pruritus, Denies lesions, Denies rash and Denies jaundice Neuro Reports Normal hearing present, Denies Abnormal speech present and Reports abnormal gait Endo Denies fatigue Aller/Immun Denies throat swelling and Denies tongue swelling Physical Exam Vital Signs: Last Vital Signs Pulse 99 06/16/24 12:16 BP 113/64 06/16/24 12:16 BMI result Body Mass Index 55.1 Const General: cooperative, no acute distress, well developed and well groomed Nutritional Appearance: well nourished and obese morbidly obese Orientation/consciousness: oriented to person, oriented to place and oriented to time Limitations: language barrier and ambulation with walker HEENT Head: Yes normocephalic and Yes atraumatic Eyes General: appearance normal, both eyes and all related structures Pupils: Equal, round and reactive pupils present Neck Neck: Yes normal visual inspection and Yes no lymphadenopathy Thyroid: Thyroid normal Resp Effort & Inspection: normal respiratory effort and able to speak in complete sentences Auscultation: clear to auscultation bilaterally Cardio Rate: regular rate Rhythm: regular rhythm Heart sounds: Normal, physiologic split S2 sound present Peripheral pulses: radial pulses present and posterior tibial pulses present GI Inspection: No distended and No Abdominal panniculus present Palpation (GI): Soft to palpation, nontender, no guarding, not rigid, No hepatosplenomegaly present and Hepatosplenomegaly present Percussion: Yes normal to percussion Auscultation: normal bowel sounds Rectal Exam - Male: Yes deferred Skin General skin exam: no rashes or lesions noted, turgor normal, skin not dry, no jaundice, No spider nevi and no striae Rashes: no rashes Nails: normal Neuro General: oriented to person, oriented to place and oriented to time Cranial nerves: Yes Equal, round and reactive pupils present and Yes Normal hearing present Speech: No Abnormal speech present Extrem General: Yes normal to inspection, No clubbing, No cyanosis and No edema Psych Appearance: grossly normal and well kempt Mental Status: mental status grossly normal Speech and movement: Normal speech and movement present Affect: normal affect Attitude: cooperative Thought process: Normal thought process present and not confabulating Thought content: Normal thought content present Insight: Limited insight present (Psych) Judgement: Limited judgement present (Psych) Assessment & Plan Assessment & Plan (1) Elevated fecal calprotectin: Code(s): R19.5 - Other fecal abnormalities Category: Medical (2) GERD with esophagitis: Code(s): K21.00 - Gastro-esophageal reflux disease with esophagitis, without bleeding Category: Medical (3) Crohn's colitis: Code(s): K50.10 - Crohn's disease of large intestine without complications Category: Medical (4) Generalized abdominal pain: Code(s): R10.84 - Generalized abdominal pain Category: Medical Plan [place] #Andrei and (Apparently the patient is here for a 2nd opinion, I do not know where he has had any prior workup or who the prior senior living sales counselor was but it would appear to be Dr. Cruz magallon [facility].) He is NOT on the budesonide or mesalamine - apparently he responded better to Viberzi and carafate than these which puts the dx of IBD in doubt. It also elevated his A1C. He only has diarrhea about once a week. He is quite happy with this response compared to when he first started seeing me. I ask him to pay attention to what he may eat that may precipitate the diarrhea, as he may have a food intolerance. He is trying to eat more healthfully. He needs to know the date and time of his upcoming colonoscopy. Will send him to my staff as I don't have the admin view. ROV after colonoscopy keep 08/31/ appt COLONOSCOPY 08/17/2024 BIOPSY Medications: New famotidine 20 mg PO BID 60 tabs 6RF Refilled sucralfate 2 grams (2 x 1 gram) PO DAILY 180 tabs 0RF R19.7 - Diarrhea, unspecified hydrocortisone 2.5% (Proctosol HC) BE SURE TO INCLUDE RECTAL APPICATOR!! 1 appl [place] BID 30 grams 6RF hemorrhoids K64.9 - Unspecified hemorrhoids Discontinued budesonide DR-ER Discontinued Reason: Doctor's Order 18 mg (6 x 3 mg) PO QAM 180 ea 3RF K50.10 - Crohn's disease of large intestine without complications lidocaine HCl-hydrocortison ac 3-0.5 % Discontinued Reason: Duplicate 1 appl [place] BID 30 days 2 ea 1RF mesalamine (Lialda) Discontinued Reason: Doctor's Order 2.4 grams (2 x 1.2 gram) PO BID 30 days 120 tabs 6RF K50.10 - Crohn's disease of large intestine without complications Coding Level of Care Code Est Pt Level 3 (80813) Diagnoses Elevated fecal calprotectin R19.5 GERD with esophagitis K21.00 Crohn's colitis K50.10 Generalized abdominal pain R10.84
[2024-06-16 12:16] VITALS: BP 113/64; PULSE 99; BMI 55.1
== END 2024-06-16 12:46 | disposition home or self-care (01) ==
PROVIDERS: PCP Nurse Practitioner Family; Visit Provider Nurse Practitioner
DX: R19.5 Other fecal abnormalities (principal); K21.00 Gastro-esophageal reflux disease with esophagitis, without bleeding; K50.10 Crohn's disease of large intestine without complications; R10.84 Generalized abdominal pain
CPT/HCPCS: 99213

== ENCOUNTER → 2024-06-16 12:05 | Outpatient (BNVA) | payer OTHER, SELFPAY | PROVIDERS: PCP Nurse Practitioner Family; Visit Provider Nurse Practitioner | DX: R10.84 Generalized abdominal pain (principal); K21.00 Gastro-esophageal reflux disease with esophagitis, without bleeding; K50.10 Crohn's disease of large intestine without complications; R19.5 Other fecal abnormalities | CPT/HCPCS: 99212 ==

== ENCOUNTER 2024-06-27 10:58 | Outpatient (AMB) | payer OTHER, SELFPAY ==
[2024-06-27 11:05] VITALS: BP 126/70; PULSE 90; O2SAT 97; BMI 54.7
--- NOTE | 2024-06-27 11:05 | A.OFFVIS_ITS ---
Vital Signs 06/27/24 11:05 Height 6 ft 1 in Weight 415 lb BMI 54.7 BP 126/70 Blood Pressure Location Lt brachial Position Sitting Pulse 90 Pulse Source Pulse Oximeter Pulse Oximetry (%) 97 Oxygen Delivery Method Room Air Comment 4 Liters Oxygen([facility]) Intake Visit Reasons: Obstructive sleep apnea Club Attendant Required: No Allergies codeine Allergy (Intermediate, Verified 06/27/24 11:07) rash HPI Comments Details: The patient is a 58-year-old gentleman well known to me with a history of COPD, chronic hypoxic and hypercarbic respiratory failure, severe ANIYA date and morbid obesity. The patient states that he has been having worsening cough for the last several days and then started having some issues with blood in his sputum. It is mixed in with sputum and today he did not have any hemoptysis. She complains some right-sided chest discomfort. Does about moderate severity. There is a pleuritic component. The patient is very concerned about his health. He was seen a couple weeks ago with hemoptysis. He did have blood work including a D-dimer that was negative. He also had an x-ray that was negative. Ultimately the patient started complaining of left-sided chest discomfort. Therefore he was admitted to [facility] where he was ruled out for a myocardial infarction. He did tell him about the bleeding but he feels like he was ignore. Did do an x-ray at [facility] which mention atelectasis. In the meantime the patient continues to have bright red blood upon coughing. He is not taking any blood thinners at this time. He does feel some discomfort also in the right lung. We did D-dimer being negative some likely to be a blood clot although a pulmonary process is concerning. The patient is also stating that he has had some weight loss. The patient will undergo a stat CT scan at this time. We try to get a CT scan of the chest urgently but it was denied by his insurance company for unclear reason as he already had an abnormal chest x-ray having chest pains and coughing of blood and everything was documented. Based on the urgency I requested that he go to the ER based on more bleeding. He went to [facility] and was very busy. Therefore decided to leave against medical advise. Finally had CT scan of the chest with demonstrating no acute disease is very suggestive that the bleeding is coming from the GI tract. The patient did undergo an EGD demonstrating esophagitis and erosive gastritis with blood in the stomach. No obvious also appreciated. His Prilosec was increased from 20 mg to 40 mg. I explained to the patient that the use of prednisone is likely contributing to the gastritis and esophagitis. Therefore, we need to avoid it if possible. He is having increased wheezing at this time. Will try to maximizing his inhaled cortical steroids in the meantime also maximize his proton pump inhibitor. 03/16/2023 the patient is here for a pulmonary follow-up visit. The patient overall is doing okay. He continues using the BiPAP although he feels that BiPAP is breaking down and stopping to work in the knee as to restart the machine. [facility] already went to check it sometime ago. I will connect with [facility] to see they can send somebody to check the machine again. If the machine is older than 5 years will try to get him a new 1. The patient is also getting oxygen through them and he does use it with activity and also want while using the BiPAP. Respiratory beckham he still complaining of chest congestion and chest wheezing. She he is using his respiratory inhalers. I will keep the same wants to make sure we can keep him with good adherence but will go ahead and switch his antibiotics to doxycycline for a couple weeks to help him with chest congestion. Will follow-up in 3-4 months to see how he is doing. The venous gas with allows to see how well he is doing the BiPAP. 08/05/2023 the patient is here for pulmonary follow-up visit. He is complaining about BiPAP. The BiPAP broke down and he had to get a replacement from the [employer] company. Currently the BiPAP being looked that to see if he can be repaired and efficacy not then he will get a replacement as per his insurance policy. The patient continues to have dyspnea on exertion and he does not his oxygen tanks with him. He says that he does not get enough portability with smaller tanks that he has to fill. I will going to have to reach out to the [employer] company to see we can do and if they have available portable oxygen concentrator that will provide him with better portability outside of the home. We did do a we have walking oximetry the patient was able to maintain a pulse ox of 92% on 3 L pulse. We will also request a POC if the [employer] provides them. In addition to that he continues using the continues oxygen with the BiPAP at nighttime. He is concerned because he is losing power a lot in the home and is concerned that he does not having a backup oxygen to keep the BiPAP going. Therefore I will reach out to the DME company to see if they can help him with that issue of backup oxygen tanks. The patient continues uses respiratory therapy. He will follow- up in 3 months. 11/05/2023 the patient is here for a pulmonary follow-up visit. He is doing fairly well from a respiratory status. He did get a portable oxygen concentrator through his DME company, [facility]. The portable oxygen concentrator has been avidity affecting beneficial. I did going to how to use it with him to make sure that he was comfortable with. It is provide significant relief at this time. He is also using BiPAP at nighttime with the oxygen and this also has been very affecting beneficial. He does use the BiPAP for more than 4 hours a night. In the therapy has been affecting beneficial. His major concerns his significant weight loss. His dates that he is lost around 50 lb in the last year. In addition to that he is having severe abdominal discomfort along with diarrhea and discomfort in the epigastric area decreased p.o. intake. He is concerned he could be having some type of cancer or symptoms very serious based on his weight loss. The patient needs to be evaluated from a GI as big. Therefore put a referral in at this time. We also reviewed his medications. He understands he is taking Daliresp. He understands this medication can also cause weight loss in GI symptoms. Although, he has been taking Daliresp for many years and he is tolerated very well. Therefore, I will consider stopping the medication only if after full workup there was no clear etiology of his symptoms. 03/27/2024 the patient is here for a pulmonary follow-up visit. The patient has been doing well from a respiratory status. He has been responding well to the portable oxygen concentrator. He has also using the oxygen with a concentrator at home. He has been using the BiPAP as prescribed. The therapy has been affecting beneficial. For some reason has not been able to get his inhalers. I did recent all his inhalers and pharmacy with refills. Because of his GI issues he was taken off the Daliresp briefly to see if that improves his symptoms. Although he is having more chest congestion. He does have significant chronic bronchitis at this time. Will go ahead and try him on azithromycin and also prednisone to see if we can improve his symptoms. If the patient continues significant bronchitis will have to speak to GI about starting his Daliresp. Right now he is doing well and is able to proceed was anesthesia and endoscopy for his evaluation of diarrhea. 06/27/2024 the patient is here for a pulmonary follow-up visit. Overall he is doing a lot better. At least from GI aspect he has been monitor closely in the believe he is going to undergo a colonoscopy soon. The patient however, has having worsening respiratory symptoms. Has had more chest congestion. Also more wheezing. During the last visit she was treated with azithromycin prednisone. And during the last visit we did take him off the Daliresp because of ongoing diarrhea and GI discomfort. Right now seems that his GI symptoms are better and because of the worsening respiratory symptoms and the fact that he responded well to Daliresp will go ahead and restart that. If he does have any issues with the Daliresp resulting in recurrent GI symptoms then he will stop it quickly. But at this point I do believe that he was benefitting from it from a respiratory status and be reasonable to restart. He continues use the oxygen with good effect. She has a portable oxygen concentrator from [facility]. He is also using his non invasiventilator at night. The therapy has been affecting beneficial he does use it for more than 4 hours a night. [facility] Medical History (Updated 06/16/24 @ 12:14 by KAHTI Webb) Chronic epigastric pain Diarrhea Pre-op chest exam Chronic idiopathic constipation Crohn's colitis Abdominal pain Asthma-COPD overlap syndrome COVID-19 Limb swelling Carpal tunnel syndrome on both sides ANIYA treated with BiPAP Chronic respiratory failure Surgical History H/O esophagogastroduodenoscopy H/O colonoscopy Social History Patient Tobacco Use Status: Never used Tobacco Review of Systems Const Reports difficulty sleeping, Denies night sweats and Reports weight loss ENT Denies change in voice, Denies lip swelling, Denies mouth pain and Denies tongue swelling Card Denies chest pain, Reports leg edema, Denies dyspnea and Reports dyspnea on exertion Resp Reports chest congestion, Reports cough, Denies hemoptysis, Denies dyspnea, Reports dyspnea on exertion and Reports wheezing GI Denies hematochezia, Reports dyspepsia, Reports heartburn and Denies hematemesis Musc Denies no additional complaints, Reports back pain and Reports myalgias Neuro Denies Neuro-related abnormal movements Psych Denies no additional complaints Eliazar/Lymph Denies easy bleeding and Denies lymphadenopathy Aller/Immun Denies lip swelling, Denies tongue swelling and Reports wheezing Physical Exam Vital Signs: Last Vital Signs Pulse 90 06/27/24 11:05 BP 126/70 06/27/24 11:05 Pulse Ox 97 06/27/24 11:05 Oxygen Delivery Method Room Air 06/27/24 11:05 BMI result Body Mass Index 54.7 Const General: alert Eyes Pupils: Equal, round and reactive pupils present Neck Neck: Yes normal visual inspection, Yes full ROM and Yes no lymphadenopathy Chest Chest palpation & inspection: normal inspection of the chest Resp Effort & Inspection: normal respiratory effort Auscultation: rhonchi, no wheezes and diminished lung sounds Cardio Rate: regular rate Rhythm: regular rhythm Heart sounds: S1 normal heart sound present and S2 normal heart sound present GI Palpation (GI): Soft to palpation Auscultation: normal bowel sounds General: Yes no CVA tenderness Back/Spine/Pelvis Back: no CVA tenderness Skin General skin exam: rashes and/or lesions noted Neuro Cranial nerves: Yes Equal, round and reactive pupils present Extrem General: Yes edema Assessment & Plan Assessment & Plan (1) Chronic respiratory failure: Code(s): J96.10 - Chronic respiratory failure, unspecified whether with hypoxia or hypercapnia Category: Medical Qualifiers: Respiratory failure complication: hypoxia and hypercapnia Qualified Code(s): J96.11 - Chronic respiratory failure with hypoxia; J96.12 - Chronic respiratory failure with hypercapnia (2) ANIYA treated with BiPAP: Code(s): G47.33 - Obstructive sleep apnea (adult) (pediatric) Category: Medical (3) Asthma-COPD overlap syndrome: Code(s): J44.9 - Chronic obstructive pulmonary disease, unspecified Category: Medical (4) Abdominal pain: Code(s): R10.9 - Unspecified abdominal pain Category: Medical Qualifiers: Abdominal location: upper abdomen, unspecified Qualified Code(s): R10.10 - Upper abdominal pain, unspecified (5) Unintentional weight loss: Comment: >50 lbs in less then 3 months Code(s): R63.4 - Abnormal weight loss Category: Medical Plan continue Symbicort short-acting beta agonist as needed diuresis as tolerated needs to continue using his oxygen: He does qualify for 3-4 L pulse with activity. POC needs 4 Lmin with his BiPAP at nighttime while sleeping. continue BiPAP with 4 L oxygen ([facility]) continue Singulair restart Daliresp due to worsening respiratory symptoms, monitor for GI adverse effects follow-up in 3-4 months Medications: New roflumilast (Daliresp) 500 mcg PO DAILY 30 tabs 11RF 30 days Refilled albuterol sulfate 90 mcg/actuation 2 puffs PO Q6H PRN 8.5 grams 11RF shortness of breath or wheezing 30 days Symbicort 160-4.5 mcg/actuation (budesonide-formoterol) 2 puffs PO BID 10.2 grams 11RF 30 days NS J44.9 - Chronic obstructive pulmonary disease, unspecified Discontinued roflumilast Discontinued Reason: Doctor's Order 500 mcg PO DAILY 90 tabs 0RF Coding Level of Care Code Est Pt Level 4 (31062) Complex EM visit Add On G2211 Diagnoses Chronic respiratory failure with hypoxia and hypercapnia J96.11; J96.12 Respiratory failure complication: hypoxia and hypercapnia ANIYA treated with BiPAP G47.33 Asthma-COPD overlap syndrome J44.9 Pain of upper abdomen R10.10 Abdominal location: upper abdomen, unspecified Unintentional weight loss R63.4 Time Spent (min) 18
== END 2024-06-27 11:25 | disposition home or self-care (01) ==
PROVIDERS: PCP Nurse Practitioner Family; Visit Provider Hospitalist
DX: J96.11 Chronic respiratory failure with hypoxia (principal); J96.12 Chronic respiratory failure with hypercapnia; G47.33 Obstructive sleep apnea (adult) (pediatric); J44.9 Chronic obstructive pulmonary disease, unspecified; R10.10 Upper abdominal pain, unspecified; R63.4 Abnormal weight loss
CPT/HCPCS: 99214; G2211

== ENCOUNTER → 2024-06-27 10:58 | Outpatient (BNVA) | payer OTHER, SELFPAY | PROVIDERS: PCP Nurse Practitioner Family; Visit Provider Hospitalist | DX: J44.9 Chronic obstructive pulmonary disease, unspecified (principal); J96.11 Chronic respiratory failure with hypoxia; J96.12 Chronic respiratory failure with hypercapnia; G47.33 Obstructive sleep apnea (adult) (pediatric); E66.9 Obesity, unspecified; R10.10 Upper abdominal pain, unspecified; R63.4 Abnormal weight loss; Z68.43 Body mass index [BMI] 50.0-59.9, adult; Z99.81 Dependence on supplemental oxygen | CPT/HCPCS: 99212 ==

== ENCOUNTER 2024-09-28 09:40 | Outpatient (REF) | payer OTHER, SELFPAY ==
--- NOTE | ~2024-09-28 | XR_ITS ---
EXAMINATION: XR hip LT min 2V w/wo pel HISTORY: M16.12 - Unilateral primary osteoarthritis, left hip COMPARISON: There are no prior studies available for comparison. FINDINGS: Two views of the left hip are submitted. Osseous mineralization is normal. There is no fracture or dislocation. There is minimal spurring at the superior aspect of the acetabulum. There is no significant joint space narrowing. The soft tissues are unremarkable. XR/XR hip LT min 2V w/wo pel IMPRESSION: Minimal acetabular spurring. Otherwise unremarkable examination of the left hip. Electronically signed by: Grupo Muñoz MD 10/04/2024 09:00 AM [facility]
--- NOTE | ~2024-09-28 | XR_ITS ---
EXAMINATION: XR SACRUM AND COCCYX CLINICAL INFORMATION: M53.3 - Sacrococcygeal disorders, not elsewhere classified COMPARISON: None available. TECHNIQUE: 2 views of the sacrum and 2 views of the coccyx were obtained. FINDINGS: No acute cortical disruption. No lytic or blastic lesions. Sclerosis of the sacroiliac joints. XR/XR sacrum coccyx min 2V IMPRESSION: No acute fracture, sacrococcyx. Electronically signed by: Esdras Saucedo MD 10/04/2024 09:14 AM [facility]
--- NOTE | ~2024-09-28 | XR_ITS ---
EXAMINATION: XR THORACIC SPINE CLINICAL INFORMATION: Low back pain, unspecified M54.50. AP thoracic already performed. COMPARISON: None available TECHNIQUE: 3 views of the thoracic spine were obtained. FINDINGS: No acute cortical disruption or malalignment. No lytic or blastic lesions. Limited examination due to patient's body habitus. Calcified plaque thoracic aorta. XR/XR thoracic spine 3V IMPRESSION: No acute fracture or gross listhesis. If patient's symptoms persist recommend CT versus MRI. Electronically signed by: Esdras Saucedo MD 10/04/2024 09:17 AM [facility]
--- NOTE | ~2024-09-28 | XR_ITS ---
EXAMINATION: XR LUMBOSACRAL SPINE CLINICAL INFORMATION: M54.9 - Dorsalgia, unspecified COMPARISON: None available. TECHNIQUE: Three views of the lumbosacral spine. FINDINGS: Multilevel endplate sclerosis. Multilevel marginal osteophyte formation and decreased intervertebral disc height more conspicuous at L4-5 and L5-S1 and to a lesser extent T12-L1. No acute cortical disruption or gross malalignment. Mild superior endplate compression deformity representing 20% volume loss T12 and L1. No lytic or blastic lesions. S-shaped curvature of the lumbar spine. XR/XR lumbar spine 2-3V IMPRESSION: Multilevel thoracolumbar spondylosis without acute fracture or gross listhesis. Electronically signed by: Esdras Saucedo MD 10/04/2024 09:16 AM [facility]
--- NOTE | ~2024-09-28 | XR_ITS ---
EXAMINATION: XR hip RT min 2V w/wo pel HISTORY: M25.551 - Pain in right hip COMPARISON: There are no prior studies for comparison. FINDINGS: A single AP view of the pelvis and two views of the right hip are submitted. Osseous mineralization is normal. There is no fracture or dislocation. The joint space is maintained. The soft tissues are unremarkable. There is degenerative disc disease of the lower lumbar spine. XR/XR hip RT min 2V w/wo pel IMPRESSION: Unremarkable examination of the right hip. Electronically signed by: Grupo Muñoz MD 10/04/2024 08:42 AM [facility]
== END 2024-09-28 09:41 | disposition home or self-care (01) ==
LOC: HO.HOSX 09:40
PROVIDERS: PCP Nurse Practitioner Family; Visit Provider Physical Medicine & Rehabilitation
DX: M54.9 Dorsalgia, unspecified (principal); M25.551 Pain in right hip; G89.29 Other chronic pain; M54.50 Low back pain, unspecified; M16.12 Unilateral primary osteoarthritis, left hip; M53.3 Sacrococcygeal disorders, not elsewhere classified
CPT/HCPCS: 72072; 72100; 72220; 73502; 99202

== ENCOUNTER 2024-09-28 09:40 | Outpatient (AMB) | payer OTHER, SELFPAY ==
--- NOTE | 2024-09-28 09:43 | MHC.OFFVIS ---
Intake Visit Reasons: New Pt - lower back pain Intake Note: Jhonny is a 58 year old male who presents today as a new patient for a evaluation of his lower back pain. No hx of injury. Patient reports ongoing pain for 18 years. Hx of PT/injections with no relief. He states that his pain is worse when he is walking, sitting and laying down. Patient reports his pain on both side of his lower back which causes his legs to go numbness and unable to walk. Patient has tried oxycodone 10mg from his PCP which gives him mild relief. Community Organization Worker Services: Community Organization Worker Present (Suze ([id number])) Allergies codeine Allergy (Intermediate, Verified 09/28/24 09:49) rash Medication List - Last Reconciled 09/28/24 by Lia Muñoz MD albuterol sulfate 2.5 mg (3 mL) inhalation BID 30 days albuterol sulfate 90 mcg/actuation 2 puffs PO Q6H PRN 30 days aspirin 81 mg PO DAILY atorvastatin 80 mg PO DAILY azithromycin 250 mg PO 3XW 28 days bisacodyl (Dulcolax (bisacodyl)) 20 mg (4 x 5 mg) PO ONCE 1 day budesonide 0.5 mg inhalation DAILY bupropion HCl XL 300 mg PO DAILY buspirone 15 mg PO BID carvedilol (Coreg) 6.25 mg PO BID citalopram 40 mg PO QAM clonazepam 0.5 mg PO DAILY PRN eluxadoline (Viberzi) 100 mg PO BID empagliflozin (Jardiance) 10 mg PO DAILY famotidine 20 mg PO BID fluticasone propionate 50 mcg/actuation 2 sprays intranasal DAILY furosemide (Lasix) 80 mg PO BID hydrocortisone 2.5% (Proctosol HC) 1 appl CA BID ibuprofen 800 mg PO Q8H insulin regular hum U-500 conc (Humulin R U-500 (Conc) Insulin Kwikpen) 125 units subcut TID ipratropium-albuterol 20-100 mcg/actuation (Combivent Respimat) 1 puff inhalation QID 30 days lidocaine HCl-hydrocortison ac 3-0.5 % 1 appl CA BID lisinopril 20 mg PO DAILY magnesium oxide 400 mg PO .every other week melatonin 10 mg PO BEDTIME metformin 1,000 mg PO BID montelukast 10 mg PO BEDTIME nebulizers As directed omega-3 acid ethyl esters 1 cap PO DAILY omeprazole 40 mg PO DAILY Oxygen Home Use As directed peg 3350-electrolytes 236-22.74-6.74 -5.86 gram (Golytely) 240 mL PO Q10M 1 day peg 3350-electrolytes 236-22.74-6.74 -5.86 gram 240 mL PO Q10M prednisone orally daily; orally daily: 2 daily x 7 days, then 1 tab daily x 7 days 14 days pregabalin 150 mg PO BID primidone 150 mg PO BID roflumilast (Daliresp) 500 mcg PO DAILY 30 days spironolactone 25 mg PO DAILY sucralfate 2 grams (2 x 1 gram) PO DAILY Symbicort 160-4.5 mcg/actuation (budesonide-formoterol) 2 puffs PO BID 30 days NS testosterone cypionate mg IM Q2W tirzepatide (Mounjaro) 10 mg subcut QWEEK tramadol 50 mg PO DAILY PRN trazodone 200 mg PO BEDTIME zolpidem ER 12.5 mg PO BEDTIME PRN HPI Comments Details: Patient follows with Pulmonary for COPD and GI for Crohn's colitis. No recent lumbar imaging results on file. History of cardiac and DM. Has chronic lower back pain since he was 17 after an accident related to lifting and fracture, had injections in the past without relief. Does not remember if he's ever had lumbar xray or MRI. His lumbar injections caused more pain, many years ago, done [address] ([facility]). He is obese, requires walker for ambulation. Pain usually mid back, radiates to legs alternately, but usually midline. May radiate to hip or groin sometimes. Poor balance. He said he went to 35 sessions in PT in 2023. [facility] Medical History (Updated 09/28/24 @ 10:10 by Lia Muñoz MD) Non-ischemic cardiomyopathy Diabetes Elevated cholesterol HTN (hypertension) Schizophrenia Bipolar disorder GERD (gastroesophageal reflux disease) Crohn's colitis Diarrhea Chronic idiopathic constipation Chronic epigastric pain Asthma-COPD overlap syndrome ANIYA treated with BiPAP Chronic respiratory failure Surgical History H/O esophagogastroduodenoscopy H/O colonoscopy Social History (Updated 09/28/24 @ 09:50 by Georgia Parada) Patient Tobacco Use Status: Never used Tobacco Current occupational status: disabled Review of Systems Const All systems reviewed & are unremarkable except as noted in HPI and below Physical Exam Limited physical exam. Patient is obese. Difficulty getting up from seated position but can do so independently. Slow gait. Requires walker. While seated, patient does not show any footdrop. At least 4/5 on knee extension and hip flexion, poor effort due to pain. Negative Jake's sign. Negative clonus. Indicated diffuse tenderness over lower back. Results Reviewed Results Reviewed: I reviewed records from the following: GI and pulmonary Assessment & Plan Assessment & Plan (1) Chronic low back pain: Code(s): M54.50 - Low back pain, unspecified; G89.29 - Other chronic pain Category: Medical Qualifiers: Back pain laterality: midline Sciatica presence: without sciatica Qualified Code(s): M54.50 - Low back pain, unspecified; G89.29 - Other chronic pain Plan History of chronic back pain and other medical comorbidities. No recent lumbar imaging. He has finished extensive physical therapy in 2023. Past history of lumbar injections that did not help him. We will repeat lumbar, thoracic and hip x-rays today. Not sure if patient will reconsider injections, we will discuss depending on results. Assessment and plan discussed with patient, and patient was agreeable. All questions were answered thoroughly. Follow up after x-rays. Lia Muñoz MD, KENYA Board Certified, [place] [employer] and Rehabilitation (ABPMR) Board Certified, [place] [employer] Electrodiagn[employer] (ABEM) Orders: Orders XR lumbar spine 2-3V Today G89.29 - Other chronic pain, M54.50 - Low back pain, unspecified, M54.9 - Dorsalgia, unspecified XR hip RT min 2V w/wo pel Today G89.29 - Other chronic pain, M25.551 - Pain in right hip, M54.50 - Low back pain, unspecified XR hip LT min 2V w/wo pel Today G89.29 - Other chronic pain, M16.12 - Unilateral primary osteoarthritis, left hip, M54.50 - Low back pain, unspecified XR sacrum coccyx min 2V Today G89.29 - Other chronic pain, M53.3 - Sacrococcygeal disorders, not elsewhere classified, M54.50 - Low back pain, unspecified XR thoracic spine 3V Today G89.29 - Other chronic pain, M54.50 - Low back pain, unspecified Coding Level of Care Code New Pt Level 4 (02400) Diagnoses Chronic midline low back pain without sciatica M54.50; G89.29 Back pain laterality: midline Sciatica presence: without sciatica
== END 2024-09-28 11:06 | disposition home or self-care (01) ==
PROVIDERS: PCP Nurse Practitioner Family; Visit Provider Physical Medicine & Rehabilitation
DX: M54.50 Low back pain, unspecified (principal); G89.29 Other chronic pain
CPT/HCPCS: 99203

== ENCOUNTER 2024-09-28 10:35 | Outpatient (REF) | payer OTHER, SELFPAY | END 2024-09-28 10:36 | disposition home or self-care (01) | LOC: HO.XRAY 10:35 | PROVIDERS: Visit Provider Physical Medicine & Rehabilitation | DX: Z13.89 Encounter for screening for other disorder (principal) ==

== ENCOUNTER → 2024-09-28 10:42 | Outpatient (BNV) | payer OTHER, SELFPAY | PROVIDERS: PCP Nurse Practitioner Family; Visit Provider Radiology Diagnostic Radiology | DX: M16.0 Bilateral primary osteoarthritis of hip (principal); M54.50 Low back pain, unspecified; M47.815 Spondylosis without myelopathy or radiculopathy, thoracolumbar region; M53.3 Sacrococcygeal disorders, not elsewhere classified | CPT/HCPCS: 72072; 72100; 72220; 73502 ==

== ENCOUNTER 2024-10-02 11:09 | Outpatient (REF) | payer OTHER, SELFPAY ==
[2024-10-02 12:08] LABS: MANUAL DIFF FLAG NO
[2024-10-02 12:15] LABS: Basophils Absolute Auto 0.1 X10*3/uL (0.0-0.2); Basophils Percent Auto 0.9 % (0-2); Eosinophils Absolute Auto 0.2 X10*3/uL (0.0-0.4); Eosinophils Percent Auto 2.1 % (0-4); Hematocrit 54.1 % (42.0-52.0); Hemoglobin 18.1 g/dl (14.0-18.0); Imm Gran Abs Auto 0.09 X10*3/uL (0.00-0.03); Lymphocytes Absolute Auto 1.5 X10*3/uL (1.2-4.9); Lymphocytes Percent Auto 16.8 % (20-40); Mean Corpuscular HGB Conc 33.5 g/dl (31.0-36.0); Mean Corpuscular Hemoglobin 28.4 pg (27.0-33.0); Mean Corpuscular Volume 84.9 fL (80.0-98.0); Mean Platelet Volume 9.7 fL (9.4-12.4); Monocytes Absolute Auto 0.8 X10*3/uL (0.1-1.2); Monocytes Percent Auto 8.6 % (2-11); Neutrophils Absolute Auto 6.4 x10*3/uL (2.0-8.3); Neutrophils Percent Auto 70.6 % (45-73); Platelet Count 177 X10*3/uL (160-400); Red Blood Count 6.37 X10*6/uL (4.60-5.80); Red Cell Distribution Width 17.8 % (11.0-16.0); White Blood Count 9.1 X10*3/uL (4.8-10.8)
[2024-10-02 12:19] LABS: VBG Base Excess 1.1 mmol/L; VBG HCO3 26 mmol/L (22-26); VBG pCO2 44 mmHg; VBG pO2 59 mmHg
[2024-10-02 12:20] LABS: Venous Blood Gas Refer to POC result
[2024-10-02 12:31] LABS: Anion Gap 12 (12-20); Blood Urea Nitrogen 16 mg/dL (9-16); Calcium 10.3 mg/dL (8.4-10.2); Carbon Dioxide 26 mmol/L (22-29); Chloride 103 mmol/L (96-108); Estimated Glomerular Filt Rate > 60; Glucose Random 123 mg/dL (60-115); Potassium 4.2 mmol/L (3.3-5.1); Sodium 137 mmol/L (135-145)
[2024-10-02 13:04] LABS: Erythrocyte Sedimentation Rate 13 MM/HR (0-15)
[2024-10-02 15:35] LABS: VBG pH 7.38 (7.32-7.43)
[2024-10-03 20:34] LABS: Immunoglobulin E 226 kU/L (<OR=114)
== END 2024-10-02 11:10 | disposition home or self-care (01) ==
LOC: HO.LAB 11:09
PROVIDERS: PCP Nurse Practitioner Family; Visit Provider Hospitalist
DX: J44.9 Chronic obstructive pulmonary disease, unspecified (principal); K21.9 Gastro-esophageal reflux disease without esophagitis; J44.1 Chronic obstructive pulmonary disease with (acute) exacerbation; J96.11 Chronic respiratory failure with hypoxia; J96.12 Chronic respiratory failure with hypercapnia; J45.901 Unspecified asthma with (acute) exacerbation
CPT/HCPCS: 36415; 80048; 82785; 82803; 85025; 85652; 99212

== ENCOUNTER 2024-10-02 11:09 | Outpatient (AMB) | payer OTHER, SELFPAY ==
--- NOTE | 2024-10-02 11:17 | A.OFFVIS_ITS ---
Vital Signs 10/02/24 11:18 Height 6 ft 1 in Weight 405 lb 10.409 oz BMI 53.5 BP 130/64 Blood Pressure Location Rt brachial Position Sitting Pulse 77 Pulse Source Pulse Oximeter Pulse Oximetry (%) 99 Oxygen Delivery Method Nasal Cannula Oxygen Flow Rate 4 Intake Visit Reasons: Obstructive sleep apnea Allergies codeine Allergy (Intermediate, Verified 09/28/24 09:49) rash HPI Comments Details: The patient is a 58-year-old gentleman well known to me with a history of COPD, chronic hypoxic and hypercarbic respiratory failure, severe ANIYA date and morbid obesity. The patient states that he has been having worsening cough for the last several days and then started having some issues with blood in his sputum. It is mixed in with sputum and today he did not have any hemoptysis. She complains some right-sided chest discomfort. Does about moderate severity. There is a pleuritic component. The patient is very concerned about his health. He was seen a couple weeks ago with hemoptysis. He did have blood work including a D-dimer that was negative. He also had an x-ray that was negative. Ultimately the patient started complaining of left-sided chest discomfort. Therefore he was admitted to [facility] where he was ruled out for a myocardial infarction. He did tell him about the bleeding but he feels like he was ignore. Did do an x-ray at [facility] which mention atelectasis. In the meantime the patient continues to have bright red blood upon coughing. He is not taking any blood thinners at this time. He does feel some discomfort also in the right lung. We did D-dimer being negative some likely to be a blood clot although a pulmonary process is concerning. The patient is also stating that he has had some weight loss. The patient will undergo a stat CT scan at this time. We try to get a CT scan of the chest urgently but it was denied by his insurance company for unclear reason as he already had an abnormal chest x-ray having chest pains and coughing of blood and everything was documented. Based on the urgency I requested that he go to the ER based on more bleeding. He went to [facility] and was very busy. Therefore decided to leave against medical advise. Finally had CT scan of the chest with demonstrating no acute disease is very suggestive that the bleeding is coming from the GI tract. The patient did undergo an EGD demonstrating esophagitis and erosive gastritis with blood in the stomach. No obvious also appreciated. His Prilosec was increased from 20 mg to 40 mg. I explained to the patient that the use of prednisone is likely contributing to the gastritis and esophagitis. Therefore, we need to avoid it if possible. He is having increased wheezing at this time. Will try to maximizing his inhaled cortical steroids in the meantime also maximize his proton pump inhibitor. 03/16/2023 the patient is here for a pulmonary follow-up visit. The patient overall is doing okay. He continues using the BiPAP although he feels that BiPAP is breaking down and stopping to work in the knee as to restart the machine. Pending Sale To [facility] already went to check it sometime ago. I will connect with [facility] to see they can send somebody to check the machine again. If the machine is older than 5 years will try to get him a new 1. The patient is also getting oxygen through them and he does use it with activity and also want while using the BiPAP. Respiratory be[place] he still complaining of chest congestion and chest wheezing. She he is using his respiratory inhalers. I will keep the same wants to make sure we can keep him with good adherence but will go ahead and switch his antibiotics to doxycycline for a couple weeks to help him with chest congestion. Will follow-up in 3-4 months to see how he is doing. The venous gas with allows to see how well he is doing the BiPAP. 08/05/2023 the patient is here for pulmonary follow-up visit. He is complaining about BiPAP. The BiPAP broke down and he had to get a replacement from the [employer]. Currently the BiPAP being looked that to see if he can be repaired and efficacy not then he will get a replacement as per his insurance policy. The patient continues to have dyspnea on exertion and he does not his oxygen tanks with him. He says that he does not get enough portability with smaller tanks that he has to fill. I will going to have to reach out to the [employer] company to see we can do and if they have available portable oxygen concentrator that will provide him with better portability outside of the home. We did do a we have walking oximetry the patient was able to maintain a pulse ox of 92% on 3 L pulse. We will also request a POC if the [employer] provides them. In addition to that he continues using the continues oxygen with the BiPAP at nighttime. He is concerned because he is losing power a lot in the home and is concerned that he does not having a backup oxygen to keep the BiPAP going. Therefore I will reach out to the [employer] company to see if they can help him with that issue of backup oxygen tanks. The patient continues uses respiratory therapy. He will follow- up in 3 months. 11/05/2023 the patient is here for a pulmonary follow-up visit. He is doing fairly well from a respiratory status. He did get a portable oxygen concentrator through his [employer] company, [facility]. The portable oxygen concentrator has been avidity affecting beneficial. I did going to how to use it with him to make sure that he was comfortable with. It is provide significant relief at this time. He is also using BiPAP at nighttime with the oxygen and this also has been very affecting beneficial. He does use the BiPAP for more than 4 hours a night. In the therapy has been affecting beneficial. His major concerns his significant weight loss. His dates that he is lost around 50 lb in the last year. In addition to that he is having severe abdominal discomfort along with diarrhea and discomfort in the epigastric area decreased p.o. intake. He is concerned he could be having some type of cancer or symptoms very serious based on his weight loss. The patient needs to be evaluated from a GI as big. Therefore put a referral in at this time. We also reviewed his medications. He understands he is taking Daliresp. He understands this medication can also cause weight loss in GI symptoms. Although, he has been taking Daliresp for many years and he is tolerated very well. Therefore, I will consider stopping the medication only if after full workup there was no clear etiology of his symptoms. 03/27/2024 the patient is here for a pulmonary follow-up visit. The patient has been doing well from a respiratory status. He has been responding well to the portable oxygen concentrator. He has also using the oxygen with a concentrator at home. He has been using the BiPAP as prescribed. The therapy has been affecting beneficial. For some reason has not been able to get his inhalers. I did recent all his inhalers and pharmacy with refills. Because of his GI issues he was taken off the Daliresp briefly to see if that improves his symptoms. Although he is having more chest congestion. He does have significant chronic bronchitis at this time. Will go ahead and try him on azithromycin and also prednisone to see if we can improve his symptoms. If the patient continues significant bronchitis will have to speak to GI about starting his Daliresp. Right now he is doing well and is able to proceed was anesthesia and endoscopy for his evaluation of diarrhea. 06/27/2024 the patient is here for a pulmonary follow-up visit. Overall he is doing a lot better. At least from GI aspect he has been monitor closely in the believe he is going to undergo a colonoscopy soon. The patient however, has having worsening respiratory symptoms. Has had more chest congestion. Also more wheezing. During the last visit she was treated with azithromycin prednisone. And during the last visit we did take him off the Daliresp because of ongoing diarrhea and GI discomfort. Right now seems that his GI symptoms are better and because of the worsening respiratory symptoms and the fact that he responded well to Daliresp will go ahead and restart that. If he does have any issues with the Daliresp resulting in recurrent GI symptoms then he will stop it quickly. But at this point I do believe that he was benefitting from it from a respiratory status and be reasonable to restart. He continues use the oxygen with good effect. She has a portable oxygen concentrator from [facility]. He is also using his non invasiventilator at night. The therapy has been affecting beneficial he does use it for more than 4 hours a night. 10/02/2024 the patient is here for a pulmonary follow-up visit. Overall he is doing well from a respiratory status. He continues with his inhalers although he did run out and I will send always prescriptions to the pharmacy. He is very happy with the fact that his GI symptoms have improved. He was scheduled for colonoscopy but apparently even after getting prepped a few times the procedure was canceled because of high risk for anesthesia. The patient is morbidly obese. Any does have chronic respiratory failure. However, this point he is medically stable. His last blood gas is reassuring with a based on pCO2 of 50 mmHg. The patient also has been stable from a respiratory status without any significant wheezing on his examination. So from a pulmonary standpoint the patient may be able to proceed with anesthesia and colonoscopy. 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 He continues uses noninvasive ventilator at nighttime with good effect. And continues to use his oxygen during the daytime also with good effect. Currently has a portable oxygen concentrator that he uses could portability outside of the home. [facility] Medical History (Updated 09/28/24 @ 10:10 by Lia Muñoz MD) Non-ischemic cardiomyopathy Diabetes Elevated cholesterol HTN (hypertension) Schizophrenia Bipolar disorder GERD (gastroesophageal reflux disease) Crohn's colitis Diarrhea Chronic idiopathic constipation Chronic epigastric pain Asthma-COPD overlap syndrome ANIYA treated with BiPAP Chronic respiratory failure Surgical History H/O esophagogastroduodenoscopy H/O colonoscopy Social History (Updated 09/28/24 @ 09:50 by Georgia Parada) Patient Tobacco Use Status: Never used Tobacco Current occupational status: disabled Review of Systems Const Reports difficulty sleeping, Denies night sweats and Reports weight loss ENT Denies change in voice, Denies lip swelling, Denies mouth pain and Denies tongue swelling Card Denies chest pain, Reports leg edema, Denies dyspnea and Reports dyspnea on exertion Resp Reports chest congestion, Reports cough, Denies hemoptysis, Denies dyspnea, Reports dyspnea on exertion and Reports wheezing GI Denies hematochezia, Reports dyspepsia, Reports heartburn and Denies hematemesis Musc Denies no additional complaints, Reports back pain and Reports myalgias Neuro Denies Neuro-related abnormal movements Psych Denies no additional complaints Eliazar/Lymph Denies easy bleeding and Denies lymphadenopathy Aller/Immun Denies lip swelling, Denies tongue swelling and Reports wheezing Physical Exam Vital Signs: Last Vital Signs Pulse 77 10/02/24 11:18 BP 130/64 10/02/24 11:18 Pulse Ox 99 10/02/24 11:18 Oxygen Delivery Method Nasal Cannula 10/02/24 11:18 Oxygen Flow Rate 4 10/02/24 11:18 BMI result Body Mass Index 53.5 Const General: alert Eyes Pupils: Equal, round and reactive pupils present Neck Neck: Yes normal visual inspection, Yes full ROM and Yes no lymphadenopathy Chest Chest palpation & inspection: normal inspection of the chest Resp Effort & Inspection: normal respiratory effort Auscultation: rhonchi, no wheezes and diminished lung sounds Cardio Rate: regular rate Rhythm: regular rhythm Heart sounds: S1 normal heart sound present and S2 normal heart sound present GI Palpation (GI): Soft to palpation Auscultation: normal bowel sounds General: Yes no CVA tenderness Back/Spine/Pelvis Back: no CVA tenderness Skin General skin exam: rashes and/or lesions noted Neuro Cranial nerves: Yes Equal, round and reactive pupils present Extrem General: Yes edema Assessment & Plan Assessment & Plan (1) Chronic respiratory failure: Code(s): J96.10 - Chronic respiratory failure, unspecified whether with hypoxia or hypercapnia Category: Medical Qualifiers: Respiratory failure complication: hypoxia and hypercapnia Qualified Code(s): J96.11 - Chronic respiratory failure with hypoxia; J96.12 - Chronic respiratory failure with hypercapnia (2) ANIYA treated with BiPAP: Comment: severe-BIPAP w/4L O2 Code(s): G47.33 - Obstructive sleep apnea (adult) (pediatric) Category: Medical (3) Asthma-COPD overlap syndrome: Code(s): J44.9 - Chronic obstructive pulmonary disease, unspecified Category: Medical (4) Abdominal pain: Code(s): R10.9 - Unspecified abdominal pain Category: Medical Qualifiers: Abdominal location: upper abdomen, unspecified Qualified Code(s): R10.10 - Upper abdominal pain, unspecified (5) Unintentional weight loss: Comment: >50 lbs in less then 3 months Code(s): R63.4 - Abnormal weight loss Category: Medical (6) Pre-op chest exam: Code(s): Z01.811 - Encounter for preprocedural respiratory examination Category: Medical Plan Medically stable, does have increased risk for respiratory complications. Currently medically maximized and medically stable. May proceed with anesthesia and GI procedure continue Symbicort short-acting beta agonist as needed diuresis as tolerated needs to continue using his oxygen: He does qualify for 3-4 L pulse with activity. POC needs 4 Lmin with his BiPAP at nighttime while sleeping. continue BiPAP with 4 L oxygen (Regional) continue Singulair Daliresp, monitor for GI adverse effects follow-up in 3-4 months Orders: Orders Complete Blood Count Auto Diff Today J44.1 - Chronic obstructive pulmonary disease with (acute) exacerbation, J45.901 - Unspecified asthma with (acute) exacerbation, J96.11 - Chronic respiratory failure with hypoxia, J96.12 - Chronic respiratory failure with hypercapnia Immunoglobulin E Today J44.1 - Chronic obstructive pulmonary disease with (acute) exacerbation, J45.901 - Unspecified asthma with (acute) exacerbation, J96.11 - Chronic respiratory failure with hypoxia, J96.12 - Chronic respiratory failure with hypercapnia Venous Blood Gas Today J44.1 - Chronic obstructive pulmonary disease with (acute) exacerbation, J45.901 - Unspecified asthma with (acute) exacerbation, J96.11 - Chronic respiratory failure with hypoxia, J96.12 - Chronic respiratory failure with hypercapnia Basic Metabolic Panel Today J44.1 - Chronic obstructive pulmonary disease with (acute) exacerbation, J45.901 - Unspecified asthma with (acute) exacerbation, J96.11 - Chronic respiratory failure with hypoxia, J96.12 - Chronic respiratory failure with hypercapnia Erythrocyte Sedimentation Rate Today J44.1 - Chronic obstructive pulmonary disease with (acute) exacerbation, J45.901 - Unspecified asthma with (acute) exacerbation, J96.11 - Chronic respiratory failure with hypoxia, J96.12 - Chronic respiratory failure with hypercapnia Medications: Changed From Symbicort 160-4.5 mcg/actuation (budesonide-formoterol) 2 puffs PO BID 30 days 10.2 grams 11RF NS J44.9 - Chronic obstructive pulmonary disease, unspecified To Symbicort 160-4.5 mcg/actuation (budesonide-formoterol) 2 puffs inhalation BID 10.2 grams 11RF 30 days NS J44.9 - Chronic obstructive pulmonary disease, unspecified Refilled albuterol sulfate 90 mcg/actuation 2 puffs PO Q6H PRN 8.5 grams 11RF shortness of breath or wheezing 30 days Coding Level of Care Code Est Pt Level 4 (56619) Complex EM visit Add On G2211 Diagnoses Chronic respiratory failure with hypoxia and hypercapnia J96.11; J96.12 Respiratory failure complication: hypoxia and hypercapnia ANIYA treated with BiPAP G47.33 Asthma-COPD overlap syndrome J44.9 Pain of upper abdomen R10.10 Abdominal location: upper abdomen, unspecified Unintentional weight loss R63.4 Pre-op chest exam Z01.811 Time Spent (min) 17
[2024-10-02 11:18] VITALS: BP 130/64; PULSE 77; O2SAT 99; BMI 53.5
== END 2024-10-02 11:46 | disposition home or self-care (01) ==
PROVIDERS: PCP Nurse Practitioner Family; Visit Provider Hospitalist
DX: J96.11 Chronic respiratory failure with hypoxia (principal); J96.12 Chronic respiratory failure with hypercapnia; G47.33 Obstructive sleep apnea (adult) (pediatric); J44.9 Chronic obstructive pulmonary disease, unspecified; R10.10 Upper abdominal pain, unspecified; R63.4 Abnormal weight loss; Z01.811 Encounter for preprocedural respiratory examination
CPT/HCPCS: 99214; G2211